=== PATIENT | female | born 1950 | race Caucasian/White ===

== ENCOUNTER 2022-03-20 14:30 | Outpatient (CLI) | payer MEDICARE, BC, SELFPAY ==
[2022-03-20 10:05] LABS: Chloride* 105 mmol/L (96-114)
[2022-03-20 10:06] LABS: Sodium* 140 mmol/L (135-149)
[2022-03-20 10:07] LABS: Potassium* 4.6 mmol/L (3.6-5.1)
[2022-03-20 10:08] LABS: Cholesterol* 223 mg/dL (90-199)
[2022-03-20 10:09] LABS: Alanine Aminotransferase* 26 U/L (4-35); Alkaline Phosphatase* 84 U/L (40-150); Aspartate Amino Transferase* 32 U/L (12-35); Bilirubin Total* 0.8 mg/dL (0.1-1.5); Blood Urea Nitrogen* 17 mg/dL (7-30); Carbon Dioxide* 30 mmol/L (20-32); Creatinine* 0.9 mg/dL (0.5-1.5); Estimated Glomerular Filt Rate 69 ml/min; Glucose* 103 mg/dL (60-115); Total Protein* 6.4 g/dL (6.0-8.3); Triglycerides* 123 mg/dL (40-149)
[2022-03-20 10:10] LABS: Calcium* 9.2 mg/dL (8.4-10.6); HDL Cholesterol* 49 mg/dL (>=50); LDL Cholesterol Calculated 149 mg/dL (<100)
[2022-03-20 10:39] LABS: TSH With Reflex to FT4* 0.048 uIU/mL (0.270-4.200)
[2022-03-20 11:19] LABS: Free T4 Free Thyroxine* 1.57 ng/dL (0.70-1.85)
== END 2022-03-20 14:31 | disposition home or self-care (01) ==
PROVIDERS: PCP Family Medicine; Visit Provider Family Medicine
DX: D64.9 Anemia, unspecified (principal); E78.5 Hyperlipidemia, unspecified; Z13.6 Encounter for screening for cardiovascular disorders; Z13.29 Encounter for screening for other suspected endocrine disorder
CPT/HCPCS: 80053; 80061; 84439; 84443

== ENCOUNTER 2022-09-14 08:39 | Outpatient (CLI) | payer MEDICARE, BC, SELFPAY ==
--- NOTE | 2022-09-14 08:45 | CRLHL7_ITS ---
For Patients: As a result of the Cures Act, medical imaging exams and procedure reports are released immediately into your electronic medical record. You may view this report before your referring provider. If you have questions, please contact your health care provider. DIGITAL DIAGNOSTIC BILATERAL MAMMOGRAM USING TOMOSYNTHESIS AND COMPUTER-AIDED DETECTION LEFT BREAST ULTRASOUND CLINICAL HISTORY: LEFT breast pain. COMPARISON: 05/12/2021, 10/15/2015, 04/18/2013. TECHNIQUE: Digital BILATERAL mammogram in four projections. Tomosynthesis and CAD utilized. Real-time ultrasound imaging of LEFT breast with imaging documentation. BREAST COMPOSITION: There are areas of scattered fibroglandular density. FINDINGS: 3D CC/MLO BILATERAL mammogram images submitted. No suspicious masses or architectural distortion. No suspicious calcifications or adenopathy. Targeted LEFT breast ultrasound performed at 6 o`clock 8 cm from the nipple. Normal breast tissue is present. No fibrocystic change or solid mass. IMPRESSION: Normal BILATERAL mammograms and normal targeted LEFT breast ultrasound. No evidence of malignancy. RECOMMENDATIONS: Annual BILATERAL screening mammography. Results and recommendations discussed with the patient. BI-RADS Category 2: Benign A lay language report of this examination will be provided to the patient. Dictated by Chon Britt MD @ 09/14/2022 10:01:24 AM jj/Dictated by: Chon Britt MD @ 09/14/2022 10:01:00 AM (Electronically Signed)
--- NOTE | 2022-09-14 09:15 | CRLHL7_ITS ---
For Patients: As a result of the Cures Act, medical imaging exams and procedure reports are released immediately into your electronic medical record. You may view this report before your referring provider. If you have questions, please contact your health care provider. PLEASE SEE DIGITAL DIAGNOSTIC BILATERAL MAMMOGRAM PERFORMED SAME DAY CRL:[email or web address] [email or web address]/Dictated by: Chon Britt MD @ 09/14/2022 10:01:00 AM (Electronically Signed)
== END 2022-09-14 08:40 | disposition home or self-care (01) ==
PROVIDERS: PCP Family Medicine; Visit Provider Obstetrics & Gynecology
DX: N64.4 Mastodynia (principal)
CPT/HCPCS: 76642; 77066; G0279

== ENCOUNTER 2023-01-22 07:42 | Outpatient (CLI) | payer MEDICARE, BC, SELFPAY ==
--- NOTE | 2023-01-22 08:17 | W.ANESCHARGE ---
Anesthesia Charges Start Date/Time Anesthesia Start Date: 01/22/23 Anesthesia Start Time: 08:21 Stop Date/Time Anesthesia Stop Date: 01/22/23 Anesthesia Stop Time: 08:55 Summary Extremes of Age - Over 70 or under 1: MDA
--- NOTE | 2023-01-22 08:57 | W.ANESCHARGE ---
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
== END 2023-01-22 07:43 | disposition home or self-care (01) ==
LOC: OP CLINIC 07:42
PROVIDERS: PCP Family Medicine; Visit Provider Internal Medicine
DX: Z12.11 Encounter for screening for malignant neoplasm of colon (principal); K57.30 Diverticulosis of large intestine without perforation or abscess without bleeding; Z86.010 Personal history of colon polyps
CPT/HCPCS: 45378; 811; 812; 99100; J2704

== ENCOUNTER 2023-01-30 11:12 | Emergency (ER) | payer MEDICARE, BC, SELFPAY ==
[2023-01-30] VITALS (13 sets, daily range): BP systolic 167–179; BP diastolic 85–94; PULSE 56–68; RESP 18; TEMP 36.3; O2SAT 92–100; BMI 32.3
--- NOTE | 2023-01-30 11:55 | CRLHL7_ITS ---
For Patients: As a result of the Century Cures Act, medical imaging exams and procedure reports are released immediately into your electronic medical record. You may view this report before your referring provider. If you have questions, please contact your health care provider. DATE: 01/30/2023 CLINICAL HISTORY: Patient with focal neurological deficits. TECHNIQUE: Standard helical CT image acquisition through the intracranial circulation following intravenous administration of contrast material with bolus tracking. 2D and 3D MIP images for post-processing were performed and interpreted on an independent workstation and 3D images were permanently archived. COMPARISON: CT same day. FINDINGS: There is no cerebral aneurysm or large vessel occlusion. The right internal carotid artery is normal. The right middle cerebral artery and its branches are normal. The right anterior cerebral artery and its branches are normal. The left internal carotid artery is normal. The left middle cerebral artery and its branches are normal. The left anterior cerebral artery and its branches are normal. The anterior communicating artery is well visualized and appears normal. The right vertebral artery and PICA are normal. The left vertebral artery and PICA are normal. The left vertebral artery is dominant. The basilar artery is patent and appears normal. The right posterior cerebral artery is normal. The left posterior cerebral artery is normal. The visualized venous structures are patent. IMPRESSION: Normal CT angiogram of the head without intracranial aneurysm or other neurovascular abnormality. Please note that all CT scans at this facility use dose modulation, iterative reconstruction, and/or weight-based dosing when appropriate to reduce radiation dose to as low as reasonably achievable. Dictated by Geoff Hardin MD @ 01/30/2023 4:46:00 PM (Electronically Signed)
--- NOTE | 2023-01-30 11:55 | CRLHL7_ITS ---
For Patients: As a result of the Cures Act, medical imaging exams and procedure reports are released immediately into your electronic medical record. You may view this report before your referring provider. If you have questions, please contact your health care provider. INDICATION: Dizziness. Left-sided numbness. Comparison none. TECHNIQUE: Noncontrast CT head. FINDINGS: Mild generalized volume loss. No acute intracranial hemorrhage, acute infarct, mass effect, or fracture. Patchy low-attenuation change within the white matter consistent with chronic deep white matter small ischemic changes. Normal calvarium and skull base. Visualized paranasal sinuses and mastoid air cells are clear. Normal orbits bilaterally. IMPRESSION: 1. No acute intracranial abnormality. 2. Mild generalized volume loss. Chronic deep white matter small vessel ischemic changes Please note that all CT scans at this facility use dose modulation, iterative reconstruction, and/or weight-based dosing when appropriate to reduce radiation dose to as low as reasonably achievable. Dictated by Valdemar Pryor MD @ 01/30/2023 12:22:11 PM (Electronically Signed)
--- NOTE | 2023-01-30 11:56 | ED.GENADULT ---
HPI - General Adult General Chief complaint: Dizziness/Vertigo Stated complaint: dizzy, left side numbness Time Seen by Provider: 01/30/23 11:30 History of Present Illness HPI narrative: This 72-year-old female comes in stating that she does not feel right with some lightheadedness and had some tingling in her tongue on the left side and also in her left toe. These symptoms were present upon awakening this morning. She does not have any speech change and does not report any unilateral weakness. She states that her vision seemed a bit blurry. She does have a mild headache. Related Data Home Medications Medication Instructions Recorded Confirmed ibuprofen 200 mg capsule 400 mg PO Q8H PRN 12/29/21 01/19/23 multivitamin 1 tab PO QDAY 12/29/21 01/19/23 cetirizine 10 mg tablet 10 mg PO QDAY 05/27/22 01/19/23 mv-mn-folic 200 mcg-vit K 15 cap PO 09/18/22 01/19/23 mcg-lutein 5 mg-zeaxanthin 1 mg capsule (PreserVision AREDS 2 Plus Multivit) Herbal life Occular PO 10/21/22 01/19/23 Previous Rx's Medication Instructions Recorded hydrochlorothiazide 25 mg tablet 25 mg PO QDAY PRN edema #30 tabs 03/24/22 levothyroxine 100 mcg tablet 100 mcg PO QDAY #90 tabs 03/24/22 omeprazole 40 mg capsule,delayed 40 mg PO QAM #90 caps 03/24/22 release fluticasone propionate 50 2 spray intranasal QDAY #10 mL 10/21/22 mcg/actuation nasal spray,suspension (Flonase Allergy Relief) peg 3350-electrolytes 236 240 ml PO ONCE #4,000 mL 12/31/22 gram-22.74 gram-6.74 gram-5.86 gram solution (Golytely) methylprednisolone 4 mg tablets in See Rx Instructions PO .COMPLEX 01/30/23 a dose pack (Medrol (Saul)) #21 ea Allergies Allergy/AdvReac Type Severity Reaction Status Date / Time codeine Allergy Mild Upset Verified 01/30/23 11:22 stomach oxycodone Allergy Mild Upset Verified 01/30/23 11:22 stomach Review of Systems Status of ROS: Reports: 10 or more systems reviewed and unremarkable except as noted in History and below Narrative: Constitutional: No fevers, no weight gain or loss. Eyes: No discharge. No vision changes. HENT: No congestion, no sore throat, no ear pain. Cardiovascular: No chest pain, no palpitations. Respiratory: No shortness of breath, no wheezes, no cough. Gastrointestinal: No abdominal pain, no vomiting, no diarrhea. Genitourinary: No dysuria, no hematuria. Musculoskeletal: Normal range of motion. Skin: No rashes, no pruritis. Neurological: No weakness, speech change. Sensory change as described above. She feels a bit lightheaded. Endo/Heme/Allergies: No bruising or bleeding. No polydipsia. Pysch: no suicidality, no anxiety, no insomnia. All other systems reviewed and are negative. [facility] Surgical History (Updated 01/14/23 @ 15:22 by Matt Lanier) History of arthroplasty of left knee (03/16/12) ?Z96.652 - Presence of left artificial knee joint (ICD-10) History of cataract surgery ?Z98.49 - Cataract extraction status, unspecified eye (ICD-10) Status post tonsillectomy and adenoidectomy ?Z90.89 - Acquired absence of other organs (ICD-10) History of tubal ligation (1976) ?Z98.51 - Tubal ligation status (ICD-10) History of laparoscopic cholecystectomy (09/05/09) ?Z90.49 - Acquired absence of other specified parts of digestive tract (ICD-10) History of dilation and curettage ?Z98.890 - Other specified postprocedural states (ICD-10) History of colonoscopy ?Z98.890 - Other specified postprocedural states (ICD-10) History of carpal tunnel surgery of left wrist (2004) ?Z98.890 - Other specified postprocedural states (ICD-10) Family History Diabetes Aneurysm Heart problem High blood pressure Uterine cancer Mother Stroke Social History (Reviewed 01/19/23 @ 10:26 by Ananya Rubio [facility], [facility]) Smoking Status: Never smoker Do you use any of these nicotine containing products: None Second hand tobacco smoke exposure: No How often do you have a drink containing alcohol: never AUDIT-C Alcohol total score: 0 Non-prescribed substance use: denies use Little interest or pleasure in doing things: not at all Feeling down, depressed, or hopeless: not at all Exam Narrative: Exam Narrative: Constitutional: Well-developed, well-nourished, no acute distress. HEENT: Normocephalic, atraumatic. Neck: Normal range of motion. Nontender. Supple. Heart: Regular. No murmurs. Normal rate. Intact distal pulses. Lungs: Clear to auscultation. No chest discomfort. No wheezes, rhonchi, or rales. Abdomen: Normal bowel sounds. Nontender. No rebound tenderness. Genitalia: Deferred. Back: No midline tenderness. Normal range of motion. Extremities: Normal range of motion. No injury. Skin: Intact. No rash. Warm. No erythema or pallor. Neurologic: No altered sensation. No weakness. Alert and oriented. No facial asymmetry. Tongue is midline. [id number] is normal. No pronator drift. Sweet Dough Mixer strength is equal bilaterally. She is able to raise each leg from the bed to my hand. She is able to ambulate normally but states that she feels off balance. Psychiatric: No suicidality. No anxiety or depression. No insomnia. Nursing notes and vitals signs are reviewed. Const: Vital Signs, click to edit/add: Vital Signs - 24 hr 01/30/23 11:22 01/30/23 12:16 01/30/23 12:17 Temperature 97.3 F L Pulse Rate 62 62 Pulse Rate [Right Pulse Oximeter] 68 Respiratory Rate 18 Blood Pressure 167/85 H Blood Pressure [Ri ght Upper Arm] 171/90 H Pulse Oximetry 99 98 98 Oxygen Delivery Me thod Room Air 01/30/23 12:19 01/30/23 12:30 01/30/23 13:14 Temperature Pulse Rate 64 61 56 L Pulse Rate [Right Pulse Oximeter] Respiratory Rate Blood Pressure 179/94 H Blood Pressure [Ri ght Upper Arm] Pulse Oximetry 99 95 97 Oxygen Delivery Me thod 01/30/23 13:15 01/30/23 13:30 01/30/23 13:45 Temperature Pulse Rate 56 L 59 L 61 Pulse Rate [Right Pulse Oximeter] Respiratory Rate Blood Pressure Blood Pressure [Ri ght Upper Arm] Pulse Oximetry 100 92 96 Oxygen Delivery Me thod Course Vital Signs Vital signs: Initial Vital Signs Temperature 97.3 F L 01/30/23 11:22 Temperature Source Temporal Artery Scan 01/30/23 11:22 Pulse Rate 68 01/30/23 11:22 Respiratory Rate 18 01/30/23 11:22 Blood Pressure 171/90 H 01/30/23 11:22 Blood Pressure Mean 117 H 01/30/23 11:22 Blood Pressure Position Sitting 01/30/23 11:22 Pulse Oximetry 99 01/30/23 11:22 Oxygen Delivery Method Room Air 01/30/23 11:22 Vital Signs Temperature 97.3 F L 01/30/23 11:22 Pulse Rate 68 01/30/23 11:22 Respiratory Rate 18 01/30/23 11:22 Blood Pressure 171/90 H 01/30/23 11:22 Pulse Oximetry 99 01/30/23 11:22 Oxygen Delivery Method Room Air 01/30/23 11:22 Temperature 97.3 F L 01/30/23 11:22 Pulse Rate 61 01/30/23 13:45 Respiratory Rate 18 01/30/23 11:22 Blood Pressure 179/94 H 01/30/23 12:19 Pulse Oximetry 96 01/30/23 13:45 Oxygen Delivery Method Room Air 01/30/23 11:22 Medical Decision Making MDM Narrative Medical decision making narrative: This patient comes in reporting tingling sensation in her tongue on the left side that she woke up with this morning. She also had some tingling sensation in her toe which has resolved. Her neurologic exam is normal. It does seem that the wrinkle lines in her forehead on the left side are less prominent than the right. She does not have any other facial asymmetry or weakness. 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 A CT scan of the head with and without contrast shows no acute findings. MRI of the head also is reassuring. Lab results additionally are in normal range. The patient has normal neurologic exam otherwise. She does feel that her vision is more blurry in the left eye but there is no visual field deficit. There are no findings on exam or with studies that indicate a central process such as a stroke. This was reassuring to the patient. She does have plans to follow-up with her eye doctor and states that she does have macular degeneration. A prescription for Medrol Dosepak is provided. Lab Data Labs: Lab Results 01/30/23 Range/Units 11:45 WBC 4.28 L (4.50-11.00) K/uL RBC 4.07 (4.00-5.20) m/uL Hgb 12.2 (12.0-16.0) gm/dL Hct 37.6 (33.0-51.0) % MCV 92 (80-100) fL MCH 30 (26-34) pg MCHC 32 (32-36) gm/dL RDW Coeff of Siri 14.8 (11.5-15.5) % Plt Count 319 (140-440) K/uL Neut % (Auto) 61.6 (42.0-72.0) % Lymph % (Auto) 24.1 (20-44) % Russell % (Auto) 9.6 (0.0-11.0) % Eos % (Auto) 4.2 (0.0-7.0) % Baso % (Auto) 0.5 (0.0-3.0) % Neut # (Auto) 2.60 (1.7-7.0) K/uL Lymph # (Auto) 1.00 (0.90-2.90) K/uL Russell # (Auto) 0.40 (0.00-0.90) K/UL Eos # (Auto) 0.20 (0.00-0.50) K/uL Baso # (Auto) 0.00 (0.00-0.30) K/uL Abs Immat Gran (auto) 0.00 (0.00-0.30) K/uL Imm/Tot Granulo (auto) 0.0 % Sodium 138 (135-149) mmol/L Potassium 4.4 (3.6-5.1) mmol/L Chloride 108 (96-114) mmol/L Carbon Dioxide 26 (20-32) mmol/L BUN 27 (7-30) mg/dL Creatinine 0.9 (0.5-1.5) mg/dL Estimated Creat Clear 38.94 Estimated GFR 68 ml/min Glucose 93 (60-115) mg/dL Calcium 8.7 (8.4-10.6) mg/dL Total Bilirubin 0.6 (0.1-1.5) mg/dL Direct Bilirubin 0.0 (0.0-0.5) mg/dL AST 32 (12-35) U/L ALT 25 (4-35) U/L Alkaline Phosphatase 75 (40-150) U/L NT-Pro-B Natriuret Pep 341 pg/mL Total Protein 6.6 (6.0-8.3) g/dL Albumin 3.8 (3.3-5.0) g/dL Imaging Data MRI - head: Radiologist's impression: 1. No acute intracranial abnormality. 2. Mild generalized volume loss. Scattered foci of T2 signal within the white matter both cerebral hemispheres consistent with chronic deep white matter small vessel ischemic changes or sequela of migraine headache 3. No acute or chronic intracranial hemorrhage CT scan - head: Radiologist's impression: CTA neck: 1. Normal bilateral carotid artery circulations from the origin to the skullbase. No high-grade stenosis. 2. Patent bilateral vertebral artery circulations from the origin to the vertebrobasilar junction. No high-grade stenosis or dissection. Other: Normal soft tissues of the visualized neck Lung apices are clear. Cervical spondylosis. Discharge Plan Discharge Clinical Impression: Paresthesias Patient Disposition: Home w/ Parent or Adult Condition: Stable Additional Instructions: Take medication as prescribed. 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 Return if worsening symptoms happen. Prescriptions: New methylprednisolone [Medrol (Saul)] 4 mg tablets,dose pack See Rx Instructions .ROUTE .COMPLEX Qty: 21 0RF Rx Instructions: orally per package directions No Action levothyroxine 100 mcg tablet 100 mcg PO QDAY Qty: 90 3RF hydrochlorothiazide 25 mg tablet 25 mg PO QDAY PRN (Reason: edema) Qty: 30 11RF omeprazole 40 mg capsule,delayed release(DR/EC) 40 mg PO QAM Qty: 90 3RF PreserVision AREDS 2 Plus MV 200 mcg-15 mcg- 5 mg-1 mg capsule PO Herbal life Occular tablet PO fluticasone propionate [Flonase Allergy Relief] 50 mcg/actuation spray,suspension 2 spray intranasal QDAY Qty: 10 4RF Rx Instructions: administer into each nostril multivitamin Tablet 1 tab PO QDAY ibuprofen 200 mg capsule 400 mg PO Q8H PRN cetirizine 10 mg tablet 10 mg PO QDAY peg 3350-electrolytes [Golytely] 236-22.74-6.74 -5.86 gram recon soln 240 ml PO ONCE Qty: 4000 0RF Rx Instructions: 4pm day prior to procedure. Drink 8oz glass every 15 minutes until 1/2 of solution is gone. 6 hours prior to your procedure time drink 8oz glass every 15 minutes until remaining solution is gone. Follow Up/Referrals: Felipe Fan MD [Primary Care Provider] - Stand Alone Forms: [employer] Info Instructions
--- NOTE | 2023-01-30 12:02 | CRLHL7_ITS ---
For Patients: As a result of the Century Cures Act, medical imaging exams and procedure reports are released immediately into your electronic medical record. You may view this report before your referring provider. If you have questions, please contact your health care provider. DATE: 01/30/2023 CLINICAL HISTORY: Patient with dizziness. TECHNIQUE: Standard helical CT image acquisition of the neck up to the skull base after bolus intravenous contrast enhancement. 2D and 3D MIP images for post-processing were performed and interpreted on an independent workstation and 3D images were permanently archived. COMPARISON: CT same day. FINDINGS: The origins of the great vessels from the aortic arch are patent. The origin of the right vertebral artery is patent. The origin of the left vertebral artery is patent. The common carotid arteries are patent. There is no stenosis at the origin of the right internal carotid artery. There is no stenosis at the origin of the left internal carotid artery. The rest of the cervical segments of the internal carotid arteries are patent up to the skull base. The left vertebral artery is dominant. The cervical segments of the vertebral arteries are patent up to the skull base. The visualized lung apices are unremarkable. The thyroid gland is unremarkable. The soft tissues of the neck are unremarkable. There are degenerative changes in the cervical spine. IMPRESSION: Normal CT angiogram of the neck. Please note that all CT scans at this facility use dose modulation, iterative reconstruction, and/or weight-based dosing when appropriate to reduce radiation dose to as low as reasonably achievable. Dictated by Geoff Hardin MD @ 01/30/2023 4:46:00 PM (Electronically Signed)
[2023-01-30 12:05] LABS: Basophils Percent Auto 0.5 % (0.0-3.0); Eosinophils Percent Auto 4.2 % (0.0-7.0); Hematocrit 37.6 % (33.0-51.0); Hemoglobin* 12.2 gm/dL (12.0-16.0); Lymphocytes Percent Auto 24.1 % (20-44); Mean Corpuscular HGB Conc 32 gm/dL (32-36); Mean Corpuscular Hemoglobin 30 pg (26-34); Mean Corpuscular Volume 92 fL (80-100); Monocytes Percent Auto 9.6 % (0.0-11.0); Neutrophils Percent Auto 61.6 % (42.0-72.0); Platelet Count* 319 K/uL (140-440); RDW Coefficient of Variation % 14.8 % (11.5-15.5); Red Blood Count 4.07 m/uL (4.00-5.20); White Blood Count* 4.28 K/uL (4.50-11.00)
--- NOTE | 2023-01-30 12:12 | CRLHL7_ITS ---
For Patients: As a result of the Century Cures Act, medical imaging exams and procedure reports are released immediately into your electronic medical record. You may view this report before your referring provider. If you have questions, please contact your health care provider. INDICATION: Dizziness. Left-sided numbness. Comparison CT from earlier today. TECHNIQUE: Multiplanar T1, T2, FLAIR and diffusion-weighted imaging. FINDINGS: Mild generalized volume loss. Scattered foci of T2/FLAIR signal hyperintense within the white-matter of both cerebral hemispheres consistent with chronic deep white matter small ischemic changes or sequela of migraine headache. No intracranial hemorrhage. No abnormal ventricular dilatation. Intracranial vascular flow voids are preserved. No mass effect. No midline shift. No restricted diffusion to suggest acute ischemia. No susceptibility artifact of remote hemorrhage. Bilateral orbits are unremarkable. Normal appearing sella. Visualized paranasal sinuses mastoid air cells are unremarkable. IMPRESSION: 1. No acute intracranial abnormality. 2. Mild generalized volume loss. Scattered foci of T2 signal within the white matter both cerebral hemispheres consistent with chronic deep white matter small vessel ischemic changes or sequela of migraine headache 3. No acute or chronic intracranial hemorrhage Dictated by Valdemar Pryor MD @ 01/30/2023 1:21:38 PM (Electronically Signed)
[2023-01-30 12:15] LABS: Slide Review Reflex No
[2023-01-30 12:25] LABS: Albumin* 3.8 g/dL (3.3-5.0); Chloride* 108 mmol/L (96-114)
[2023-01-30 12:26] LABS: Potassium* 4.4 mmol/L (3.6-5.1); Sodium* 138 mmol/L (135-149)
[2023-01-30 12:28] LABS: Bilirubin Total* 0.6 mg/dL (0.1-1.5); Carbon Dioxide* 26 mmol/L (20-32); Creatinine* 0.9 mg/dL (0.5-1.5); Est. Creatinine Clearance* 38.94; Estimated Glomerular Filt Rate 68 ml/min; Total Protein* 6.6 g/dL (6.0-8.3)
[2023-01-30 12:29] LABS: Alanine Aminotransferase* 25 U/L (4-35); Alkaline Phosphatase* 75 U/L (40-150); Aspartate Amino Transferase* 32 U/L (12-35); Blood Urea Nitrogen* 27 mg/dL (7-30); Calcium* 8.7 mg/dL (8.4-10.6); Glucose* 93 mg/dL (60-115)
[2023-01-30 13:01] LABS: NT Pro B Type NatriureticPept* 341 pg/mL
== END 2023-01-30 15:02 | disposition home or self-care (01) ==
PROVIDERS: Emergency Provider Emergency Medicine Emergency Medical Services; PCP Family Medicine
DX: R20.2 Paresthesia of skin (principal)
CPT/HCPCS: 36415; 70450; 70496; 70498; 70551; 80048; 80076; 83880; 85025; 99284; Q9967

== ENCOUNTER 2023-02-09 15:40 | Outpatient (CLI) | payer MEDICARE, BC, SELFPAY | END 2023-02-09 15:41 | disposition home or self-care (01) | LOC: NFLDREF 15:41 | PROVIDERS: PCP Family Medicine; Visit Provider Family Medicine | DX: R51.9 Headache, unspecified (principal); E03.9 Hypothyroidism, unspecified | CPT/HCPCS: 86140 ==

== ENCOUNTER 2023-04-02 07:51 | Outpatient (CLI) | payer MEDICARE, BC, SELFPAY | END 2023-04-02 07:52 | disposition home or self-care (01) | LOC: RAD 07:51 | PROVIDERS: PCP Family Medicine; Visit Provider Family Medicine | DX: I63.9 Cerebral infarction, unspecified (principal) | CPT/HCPCS: 93306 ==

== ENCOUNTER 2023-04-15 08:40 | Outpatient (CLI) | payer MEDICARE, BC, SELFPAY | END 2023-04-15 08:41 | disposition home or self-care (01) | LOC: NFLDREF 04-19 06:12 | PROVIDERS: PCP Family Medicine; Referring Provider Family Medicine; Visit Provider Family Medicine | DX: E78.5 Hyperlipidemia, unspecified (principal); E03.9 Hypothyroidism, unspecified; D64.9 Anemia, unspecified | CPT/HCPCS: 80053; 80061; 84439; 84443 ==

== ENCOUNTER 2023-07-12 08:25 | Outpatient (CLI) | payer MEDICARE, BC, SELFPAY ==
--- OUTSIDE RECORDS SUMMARY | 2023-07-12 15:19 | XMS_ITS | Referral Summary ---
Author Name Unknown Organization [facility] Address [address] [place] [id number] Care Team Providers Care Recruitment And Outreach Assistant Name Role Phone Felipe Fan MD Primary Care Provider Wander Pryor MD Unavailable [phone] Kimmy Stover MD Unavailable Wander Pryor MD Unavailable [phone] Encounters Date Type Department Care Team Description 04/28/2023 Travel 04/28/2023 Orders Only [facility] - [address] [place] [id number] Wander Pryor MD Subjective visual disturbance (Primary Dx) 04/28/2023 PRE VISIT [facility] Eye [address] [facility] [address] [place] [address] Wander Pryor MD 04/28/2023 8:30 AM GRAPHICS SOFTWARE ENGINEER Office Visit [facility] - [address] [place] [id number] Kimmy Stover MD Lee, Michael S, MD Internuclear ophthalmoplegia of right eye (Primary Dx); Subjective visual disturbance from Last 3 Months Allergies Active Allergy Reactions Criticality Noted Date Comments Codeine Nausea 02/28/2007 Medications Medication Sig Dispensed Refills Start Date End Date Status fluticasone (FLONASE) 50 MCG/ACT nasal spray 0 04/02/2023 Active hydrochlorothiazide (HYDRODIURIL) 25 MG tablet 0 04/14/2023 Active levothyroxine (SYNTHROID/LEVOTHROID) 100 MCG tablet 0 03/14/2023 Active omeprazole (PRILOSEC) [address] capsule 0 03/22/2023 Active Active Problems Problem Noted Date Diagnosed Date Fibromyalgia 04/28/2023 Osteoarthritis 04/28/2023 Hypothyroidism 04/28/2023 Social History Tobacco Use Types Packs/Day Years Used Date Smoking Tobacco: Never Smokeless Tobacco: Never PHQ-2 Answer Date Recorded PHQ-2 Score 0 04/28/2023 Adolescent Education Answer Date Record ed Getting School Help Needed Not on file 03/05 Sex and Gender Information Value Date Recorded Sex Assigned at Not on file Gender Identity Not on file Sexual Orientation Not on file Plan of Treatment Not on file Procedures Procedure Name Priority Date/Time Associated Diagnosis Comments SENSORIMOTOR Routine 04/28/2023 2:39 PM GRAPHICS SOFTWARE ENGINEER Internuclear ophthalmoplegia of right eye from Last 3 Months Results * Sensorimotor (04/28/2023 2:39 PM GRAPHICS SOFTWARE ENGINEER) Narrative Wander Pryor MD - 04/28/2023 2:39 PM GRAPHICS SOFTWARE ENGINEER Right hyperphoria, small exophoria. Wander Pryor MD OPHTHALMOLOGY from Last 3 Months Care Teams Recruitment And Outreach Assistant Relationship Specialty Start Date End Date Felipe Fan MD [facility] [address] [place] [address] PCP - General Family Medicine 03/01/23 Wander Pryor MD [address] [place] [id number] Ophthalmology 03/01/23 Kimmy Stover MD [facility] NEUROLOGICAL [facility] [address] [place] [address] Referring Physician Neurology 03/01/23 Wander Pryor MD [address] [place] [address] Assigned Surgical Provider 05/08/23
--- OUTSIDE RECORDS SUMMARY | 2023-07-12 15:19 | XMS_ITS | Clinical Summary ---
Author Name Unknown Organization [place] Address [address] [place] [address] Care Team Providers Care Industrial Engineering Analyst Name Role Phone Felipe Fan MD Primary Care Provider Wander Pryor MD Unavailable [phone] Kimmy Stover MD Unavailable Wander Pryor MD Unavailable [phone] Allergies Active Allergy Reactions Criticality Noted Date [...] Date Fibromyalgia 04/28/2023 Osteoarthritis 04/28/2023 Hypothyroidism 04/28/2023 Encounters Date Type Department Care Team Description 04/28/2023 8:30 AM NETWORK COORDINATOR Office Visit [facility] - [address] [address] Kimmy Stover MD Lee, Michael S, MD Internuclear ophthalmoplegia of right eye (Primary Dx); Subjective visual disturbance 04/28/2023 Travel 04/28/2023 Orders Only [facility] - [address] [address] Wander Pryor MD Subjective visual disturbance (Primary Dx) 04/28/2023 PRE VISIT [facility] Eye [address] [facility] [address] [place] [address] Wander Pryor MD from Last 3 Months Family History Medical History Relation Comments Heart Disease Father Hypertension Father Heart Disease Mother Hypertension Mother Relation Status Comments Father Mother Social History Tobacco Use Types Packs/Day Years Used Date Smoking Tobacco: Never Smokeless Tobacco: Never PHQ-2 Answer Date Recorded PHQ-2 Score 0 04/28/2023 Adolescent Education Answer Date Record ed Getting School Help Needed Not on file 03/05 Sex and Gender Information Value Date Recorded Sex Assigned at Not on file Gender Identity Not on file Sexual Orientation Not on file Plan of Treatment Health Maintenance Due Date Last Done Comments ADVANCE CARE PLANNING 1950 ANNUAL REVIEW OF HM ORDERS 1950 CT COLONOGRAPHY 1950 DEXA 1950 FIT 1950 FLEX SIG 1950 MAMMO SCREENING 1950 TSH W/FREE T4 REFLEX 1950 sDNA (Cologuard) 1950 COLONOSCOPY 08/13/1961 COLORECTAL CANCER SCREENING 08/13/1961 HEPATITIS C SCREENING 08/13/1969 LIPID 08/13/1996 ZOSTER IMMUNIZATION (1 of 2) 08/13/2001 RSV VACCINE ( & 60+) (1 - 1-dose 60+ series) 2011 FALL RISK ASSESSMENT 08/13/2016 MEDICARE ANNUAL WELLNESS VISIT 08/13/2016 Pneumococcal Vaccine: 65+ Years (1 of 1 - PCV) 08/13/2016 COVID-19 Vaccine ( - 2022- season) 2023 03/24/2022, 04/17/2021, 09/07/2020, Additional history exists INFLUENZA VACCINE (#1) 2023 06/30/2021, 2012 PHQ-2 (once per calendar year) 2023 04/28/2023 DTAP/TDAP/TD IMMUNIZATION (3 - Td or Tdap) 04/20/2033 04/20/2023, 04/06/2013 HPV IMMUNIZATION Aged Out No longer e ligible based on patient's age to complete this topic IPV IMMUNIZATION Aged Out No longer e ligible based on patient's age to complete this topic MENINGITIS IMMUNIZATION Aged Out No l onger eligible based on patient's age to complete this topic RSV MONOCLONAL ANTIBODY Aged Out No l onger eligible based on patient's age to complete this topic Procedures Procedure Name Priority Date/Time Associated Diagnosis Comments SENSORIMOTOR Routine 04/28/2023 2:39 PM NETWORK COORDINATOR Internuclear ophthalmoplegia of right eye from Last 3 Months Results * Sensorimotor (04/28/2023 2:39 PM NETWORK COORDINATOR) Narrative Wander Pryor MD - 04/28/2023 2:39 PM NETWORK COORDINATOR Right hyperphoria, small exophoria. Wander Pryor MD OPHTHALMOLOGY from Last 3 Months Care Teams Industrial Engineering Analyst Relationship Specialty Start Date End Date Felipe Fan MD [facility] [address] [place] [address] PCP - General Family Medicine 03/01/23 Wander Pryor MD [address] [place], [place] [address] Ophthalmology 03/01/23 Kimmy Stover MD [facility] [address] [place] [address] Referring Physician Neurology 03/01/23 Wander Pryor MD [address] [place] [address] Assigned Surgical Provider 05/08/23
--- OUTSIDE RECORDS SUMMARY | 2023-07-12 15:19 | XMS_ITS | Encounter Summary ---
Author Name Unknown Organization [place] Address [address] [place] [address] Care Team Providers Care National Recruiter Name Role Phone Felipe Fan MD Primary Care Provider [phone] Wander Pryor MD Unavailable [phone] Kimmy Stover MD Unavailable [phone] Encounter Details Date Type Department Care Team (Latest Contact Info) Description 04/28/2023 Travel Social History Tobacco Use Types Packs/Day Years Used Date Smoking Tobacco: Never Smokeless Tobacco: Never PHQ-2 Answer Date Recorded PHQ-2 Score 0 04/28/2023 Adolescent Education Answer Date Record ed Getting School Help Needed Not on file 03/05 Sex and Gender Information Value Date Recorded Sex Assigned at Not on file Gender Identity Not on file Sexual Orientation Not on file documented as of this encounter Plan of Treatment Not on file documented as of this encounter Visit Diagnoses Not on filedocumented in this encounter Care Teams National Recruiter Relationship Specialty Start Date End Date Felipe Fan MD [facility] [address] [place] [address] PCP - General Family Medicine 03/01/23 Wander Pryor MD [address] [place] [address] Ophthalmology 03/01/23 Kimmy Stover MD [facility] [address] [address] Referring Physician Neurology 03/01/23 documented as of this encounter
--- OUTSIDE RECORDS SUMMARY | 2023-07-12 15:20 | XMS_ITS | Encounter Summary ---
Author Name Unknown Organization [place] Address [address] [place] [address]. [place] [address] Care Team Providers Care Director Process Improvement Name Role Phone Unavailable Primary Care Provider Unavailabl e Reason for Visit * Reason Onset Date Comments Patient Request 07/14/2022 Call back Encounter Details Date Type Department Care Team (Late st Contact Info) Description 07/14/2022 Telephone [facility] - [address] 4th [place] [address] None Patient Request (Call back) Social History Tobacco Use Types Packs/Day Years Used Date Smoking Tobacco: Never Assessed Sex and Gender Information Value Date Recorded Sex Assigned at Not on file Gender Identity Not on file Sexual Orientation Not on file documented as of this encounter Miscellaneous Notes * Telephone Encounter - Suri Baptiste - 07/14/2022 9:51 AM CST Spoke to pt at 1030 and pt interested in clinical trials for macular degeneration 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 Reviewed there has been ongoing research with topic. Reviewed may visit clinicaltrials.gov to review current studies/trials. Pt aware to reach out to regular eye provider before in rolling in a clinical trial. Pt seemed comfortable with information. Gera Stahl RN 10:40 AM 07/15/22 [facility] Phone Message May a detailed message be left on voicemail: yes Reason for Call: Other: Pt is new to [facility]. She is doing research about stem cell studies and who offers treatement with stem cells for Macular Degeneration. She has a referral from her Strainer Tender that hasn't been sent our way yet. She would like a call back from the care team to discuss possible options for treatment with a retina specialist before scheduling an Appt. (Pt also had cataract surgery on 06/18/2022 and 06/22/2022). Please call Pt to discuss. Thank you! Action Taken: Message routed to: [facility] Ophthalmology Travel Screening: Not Applicable RMASTER documented in this encounter Plan of Treatment Not on file documented as of this encounter Visit Diagnoses Not on filedocumented in this encounter
--- OUTSIDE RECORDS SUMMARY | 2023-07-12 15:20 | XMS_ITS | Encounter Summary ---
Author Name Unknown Organization [place] Address [address] [place] [address] Care Team Providers Care Head Esthetician Name Role Phone Felipe Fan MD Primary Care Provider [phone] Wander Pryor MD Unavailable [phone] Kimmy Stover MD Unavailable [phone] Encounter Details Date Type Department Care Team (Late st Contact Info) Description 03/31/2023 PRE VISIT [facility] [address] 9[address] Clin [address] [place] [phone] Wander Pryor MD [address] [place] [address] Social History Tobacco Use Types Packs/Day Years Used Date Smoking Tobacco: Never Assessed Adolescent Education Answer Date Record ed Getting School Help Needed Not on file 03/05 Sex and Gender Information Value Date Recorded Sex Assigned at Not on file Gender Identity Not on file Sexual Orientation Not on file COVID-19 Exposure Response Date Recorded In the last 10 days, have yo u been in contact with someone who was confirmed or suspected to have Coronavirus/COVID-19? Unable to assess 03/01/2023 3:02 PM CDT documented as of this encounter Miscellaneous Notes * Telephone Encounter - Alexandra Hernández - 03/02/2023 8:12 AM CDT FUTURE VISIT INFORMATION FUTURE VISIT INFORMATION: Date: 03/31/23 Time: 9:00am [place] [facility] [place] INFORMATION: Referring provider: Kimmy Stover MD Referring providers clinic: [facility]ICAL [facility] Reason for visit/diagnosis 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] Diplopia [H53.2] RECORDS REQUESTED FROM: Clinic name Comments Records Status Imaging Status [facility] Recs scanned into chart under 02/26/[address] Head done 01/30/23 MRI 01/30/23- Request sent to [facility] for images - received and saved to PACS PAC LM for patient asking where CT and MRI were done 03/09- Patient called back and stated imaging was done at [facility] documented in this encounter Plan of Treatment Not on file documented as of this encounter Visit Diagnoses Not on filedocumented in this encounter Care Teams Head Esthetician Relationship Specialty Start Date End Date Felipe Fan MD [facility] [address] [place] [address] PCP - General Family Medicine 03/01/23 Wander Pryor MD [address] [place] [address] Ophthalmology 03/01/23 Kimmy Stover MD [facility] NEUROLOGICAL [facility] [address] [place] [address] Referring Physician Neurology 03/01/23 documented as of this encounter
--- OUTSIDE RECORDS SUMMARY | 2023-07-12 15:20 | XMS_ITS | Encounter Summary ---
Author Name Unknown Organization [facility] Address [address] [place] [address] Care Team Providers Care Functional Tester Typewriters Name Role Phone Felipe Fan MD Primary Care Provider [phone] Wander Pryor MD Unavailable [phone] Kimmy Stover MD Unavailable [phone] Reason for Referral * Consultation (Routine) - Pending Review Specialty Diagnoses / Procedures Referred By Deric matt Referred To Contact Ophthalmology Diagnoses Ophthalmoplegia Diplopia Kimmy Stover MD [facility] [address] [place] [address] Referral ID Status Reason Start Date Expiration Date V isits Requested Visits Authorized [id number] Pending Review 03/01/2023 02/29/2024 1 1 Question Answer Referral Type: Optometry/Ophthalmology Reason for Referral: Other My Clinical Question Is: Neuro Opth Scheduling Instructions: [facility] will call you to coordinate your care as prescribed by your provider. If you don't hear from a apparel trimmings sales representative within 2 business days, please call . Comments Referred by: Kimmy Stover MD [facility] Neurologic [address] [place] [address] Please be aware that coverage of these services is subject to the terms and limitations of your health insurance plan. Call member services at your health plan with any benefit or coverage questions. [facility] will call you to coordinate your care as prescribed by your provider. If you don't hear from a apparel trimmings sales representative within 2 business days, please call . Encounter Details Date Type Department Care Team (Latest Contact Info) Description 03/01/2023 Transcribe Orders GENERIC EXTERNAL DATA DEPARTMENT Provider, Generic External Data Ophthalmoplegia (Primary Dx); Diplopia Social History Tobacco Use Types Packs/Day Years Used Date Smoking Tobacco: Never Assessed Sex and Gender Information Value Date Recorded Sex Assigned at Not on file Gender Identity Not on file Sexual Orientation Not on file documented as of this encounter Plan of Treatment Scheduled Referrals Name Type Priority Associated Diagnoses Orde r Schedule Adult [facility] Referral Referral Routine Ophthalmoplegia Diplopia Ordered: 03/01/2023 documented as of this encounter Visit Diagnoses Diagnosis Ophthalmoplegia- Primary Paralytic strabismus, external ophthalmoplegia Diplopia documented in this encounter Care Teams Functional Tester Typewriters Relationship Specialty Start Date End Date Felipe Fan MD [facility] [address] [place] [address] PCP - General Family Medicine 03/01/23 Wander Pryor MD [address] [place] [address] Ophthalmology 03/01/23 Kimmy Stover MD [facility] NEUROLOGICAL [facility] [address] [place] [address] Referring Physician Neurology 03/01/23 documented as of this encounter
--- OUTSIDE RECORDS SUMMARY | 2023-07-12 15:20 | XMS_ITS | Encounter Summary ---
Author Name Unknown Organization [facility] Address [address] [place] [address] Care Team Providers Care Cyber Security Architect Name Role Phone Felipe Fan MD Primary Care Provider Wander Pryor MD Unavailable [phone] Kimmy Stover MD Unavailable [phone] Encounter Details Date Type Department Care Team (Latest Contact Info) Description 03/01/2023 Travel Social History Tobacco Use Types Packs/Day [...] PM CDT documented as of this encounter Plan of Treatment Not on file documented as of this encounter Visit Diagnoses Not on filedocumented in this encounter Care Teams Cyber Security Architect Relationship Specialty Start Date End Date Felipe Fan MD [facility] [address] [place] [address] PCP - General Family Medicine 03/01/23 Wander Pryor MD [address] [place] [address] Ophthalmology 03/01/23 Kimmy Stover MD [facility] [place] [address] [place] [address] Referring Physician Neurology 03/01/23 documented as of this encounter
--- OUTSIDE RECORDS SUMMARY | 2023-07-12 15:20 | XMS_ITS | Encounter Summary ---
Author Name Unknown Organization [place] Address [address] [place] [address] Care Team Providers Care Letter Sorting Machine Operator Name Role Phone Felipe Fan MD Primary Care Provider [phone] Wander Pryor MD Unavailable [phone] Kimmy Stover MD Unavailable Reason for Visit * Reason Onset Date Comments Appointment 03/26/2023 Encounter Details Date Type Department Care Team ([facility] st Contact Info) Description 03/26/2023 Telephone [facility] - [address] [place] [address] Wander Pryor MD [address] [place] [address] Appointment Social History Tobacco Use Types Packs/Day Years [...] encounter Miscellaneous Notes * Telephone Encounter - Serenity Ruelas - 03/26/2023 1:10 PM CDT Spoke with patient confirming appointment on 03/31/23. Patient requested to reschedule for a later date. Rescheduled patient or next available and sent new reminder letter to confirmed address.-Per Patient documented in this encounter Plan of Treatment Not on file documented as of this encounter Visit Diagnoses Not on filedocumented in this encounter Care Teams Letter Sorting Machine Operator Relationship Specialty Start Date End Date Felipe Fan MD [address] [address] PCP - General Family Medicine 03/01/23 Wander Pryor MD [address] [place] [address] Ophthalmology 03/01/23 Kimmy Stover MD [facility]UR[facility] [address] [place] [address] Referring Physician Neurology 03/01/23 documented as of this encounter
--- OUTSIDE RECORDS SUMMARY | 2023-07-12 15:20 | XMS_ITS | Clinical Summary ---
Author Name Unknown Organization [facility] Address [place], [place] [address] Care Team Providers Care Construction Equipment Mechanic Helper Name Role Phone Felipe Fan MD Primary Care Provider [phone] Allergies Active Allergy Reactions Criticality Noted Date Comments Codeine Nausea Only 02/28/2007 Medications Medication Sig Dispensed Refills Start Date End Date Status (u) HYDROCHLOROTHIAZIDE 25 MG TABS once a day ? 0 09/22/2004 Active MULTIVITAMIN ORAL TAB once a day ? 0 09/22/2004 Active ADVIL 200 MG ORAL TAB as needed ? 0 09/22/2004 Active ZITHROMAX 250 MG TAB take 2 tablets (500 mg) by oral route once daily for 1 day then 1 tablet (250 mg) by oral route once daily for 4 days 6 0 09/19/2007 Active LEVOTHYROXINE 88 MCG TAB take 1 tablet (88 mcg) by oral route once daily 30 0 04/30/2008 Active OMEPRAZOLE 20 MG CAP, DELAYED RELEASE take 1 pill 1 hour before breakfast and 1 hour before evening meal 60 11 09/03/2008 Active Encounters Date Type Department Care Team Description 05/18/2023 Telephone [facility] Angelic Jean Baptiste [address] [place] [address] YANNA Delgado [phone] Law James MD Results (Zio) 04/16/2023 Telephone [facility] Jean Baptiste [place] [address] [phone] Law Jamse MD Referral from Last 3 Months Immunizations Name Administration Dates Next Due Tuberculin (PPD) 06/14/1979 Family History Medical History Relation Name Comments Heart Disease Brother Heart Disease Father Heart Disease Mother Relation Name Status Comments Brother Father Mother Social History Tobacco Use Types Packs/Day Years Used Date Smoking Tobacco: Never Alcohol Use Standard Drinks/Week Comments No 0 (1 standard drink = 0.6 oz pur e alcohol) Alcoholic Drinks/day: 0 Social Connections Answer Date Recorded Frequency of Communication with Friends and Fami ly Not on file 04/09/2023 Sex and Gender Information Value Date Recorded Sex Assigned at Not on file Gender Identity Not on file Sexual Orientation Not on file Obstetrics History Last Filed Vital Signs Vital Sign Reading Time Taken Comments Blood Pressure 110/80 09/19/2007 10:59 AM CDT Pulse 78 09/19/2007 10:59 AM CDT Temperature 36.8 ??C (98.3 ??F) 02/28/2007 11:39 AM C DT Respiratory Rate - - Oxygen Saturation 99% 09/19/2007 10:59 AM CDT Inhaled Oxygen Concentration - - Weight 88.5 kg (195 lb) 09/19/2007 10:59 AM CDT Height 160 cm (5' 3) 06/10/2007 9:11 AM PSYCHIATRIC NURSE PRACTITIONER Body Mass Index 34.54 06/10/2007 9:11 AM PSYCHIATRIC NURSE PRACTITIONER Plan of Treatment Health Maintenance Due Date Last Done Comments Tdap 08/13/1962 Depression screening for age 12+ 1963 BMI (ht and wt on same day) for age 18+ 08/13/1969 Hepatitis C screening for age 18-79 08/13/1969 Tetanus booster 1971 Colonoscopy through age 75 08/13/1996 Mammogram for age 45-75 08/13/1996 Zoster (shingles) series for age 50+ (1 of 2) 08/13/2001 Lipids for age 45-75 10/09/2009 10/09/2004 DEXA/DXA scan for age 65+ 08/13/2016 Medicare Wellness for age 65+ 08/13/2016 Pneumococcal series for age 65+ (1 of 1 - PCV) 08/13/2016 COVID-19 vaccine series ( - 2022- season) 2023 09/07/2020, 08/17/2020 Influenza for age 65+ 02/12/2023 Procedures Procedure Name Priority Date/Time Associated Diagnosis Comments EXTENDED HOLTER Routine 05/18/2023 Atrial fibrillation, unspecified type (HC) Cerebrovascular accident (CVA), unspecified mechanism (HC) from Last 3 Months Results * Zio XT (05/18/2023) Law James MD CARDIAC SERVICE S ORD from Last 3 Months Care Teams Construction Equipment Mechanic Helper Relationship Specialty Start Date End Date Felipe Fan MD [address] [place] [phone] PCP - General Family Practice 05/27/21
--- OUTSIDE RECORDS SUMMARY | 2023-07-12 15:20 | XMS_ITS | Encounter Summary ---
Author Name Unknown Organization [place] Address [address] [place] [address]. [place] [address] Care Team Providers Care Loaf Counter Name Role Phone Felipe Fan MD Primary Care Provider [phone] Wander Pryor MD Unavailable [phone] Kimmy Stover MD Unavailable [phone] Encounter Details Date Type Department Care Team (Late st Contact Info) Description 04/28/2023 [facility] Only [facility] [address] [place] [phone] Wander Pryor MD [address] [place] [address] Subjective visual disturbance (Primary Dx) Social History Tobacco Use Types Packs/Day Years [...] as of this encounter Visit Diagnoses Diagnosis Subjective visual disturbance- Primary Subjective visual disturbance, unspecified documented in this encounter Care Teams Loaf Counter Relationship Specialty Start Date End Date Felipe Fan MD [facility] - [address] [address] PCP - General Family Medicine 03/01/23 Wander Pryor MD [address] [place] [address] Ophthalmology 03/01/23 Kimmy Stover MD [facility]UROLOG[facility] [address] [place] [address] Referring Physician Neurology 03/01/23 documented as of this encounter
--- OUTSIDE RECORDS SUMMARY | 2023-07-12 15:20 | XMS_ITS | Encounter Summary ---
Author Name Unknown Organization [place] Address [address] [place] [address] Care Team Providers Care Business Services Tech Name Role Phone Felipe Fan MD Primary Care Provider Wander Pryor MD Unavailable [phone] Kimmy Stover MD Unavailable + [phone] Reason for Visit * Reason Comments Diplopia Evaluation Pt here for double v ision. Referred by Dr. Leach * Consultation (Routine) - Pending Review Specialty Diagnoses / Procedures Referred By Deric matt Referred To Contact Ophthalmology Diagnoses Ophthalmoplegia Diplopia Kimmy Stover MD [facility] [address] [address] Referral ID Status Reason Start Date Expiration Date V isits Requested Visits Authorized [id number] Pending Review 03/01/2023 02/29/2024 1 1 Encounter Details Date Type Department Care Team (Late st Contact Info) Description 04/28/2023 8:30 AM DIGITAL X RAY SERVICE ENGINEER Office Visit [facility] Clinic - [address] 4th [place] [address] Kimmy Stover MD [facility] [address] [address] Wander Pryor MD [address] [place] [phone] Internuclear ophthalmoplegia of right eye (Primary Dx); Subjective visual disturbance Social History Tobacco Use Types Packs/Day Years [...] on file documented as of this encounter Progress Notes * Wander Pryor MD - 04/28/2023 8:30 AM CST Images from the original note were not included. Elena Marvin is a 72 year old female with the following diagnoses: 1. Internuclear ophthalmoplegia of right eye 2. Subjective visual disturbance Patient was sent for consultation by Dr. Stover for ophthalmoplegia and diplopia HPI: January 30 patient noticed that she was having double vision and imbalance. Patient went to ER that day and they did CT Head WO, CTA head/neck, MRI Brain WO to rule out stroke. Patient was given IV steroids once while in the ER and then was sent home with 1 week taper. After she was discharged patient had a severe headache that lasted through the afternoon and all night. It resolved by morning. Denies jaw claudication, unintentional weight loss, night sweats/fevers, shoulder/girdle pain. Patient went to regular eye doctor Dr. Marvin on 02/03/23 who noted that her right eye didn't cross midline when trying to look left. Patient declines any blurry vision during this episode. The eye movementissue resolved in 3-4 weeks. Patient was referred to neurology saw Dr. Stover on 02/26/23 who seth labs for GCA and ESR/CRP came back normal. Patient was then referred to neuro-ophthalmology for further evaluation. Patient had good vision after cataract surgery each eye 06/2022. Patient also has knownhistory of macular degeneration. Independent historians: Patient Daughter Review of outside testin01/30/23 MRI Brain WO 01/30/23 CT Head WO 01/30/23 CTA head No impressions available for above imaging My interpretation performed today of outside testing: I have independently reviewed MRI Brain and CT Head performed 01/30/23. No visible structural causesfor a possible 3rd nerve palsy. Review of outside clinical notes: 02/26/23 -- Visit with Dr. Stover Past medical history: Patient Active Problem List Diagnosis Fibromyalgia Osteoarthritis Hypothyroidism Medications: Hydrochlorothiazide, low dose aspirin, levothyroxine, omeprazole Family history / social history: Patient's family history includes Heart Disease in her father and mother; Hypertension in her father and mother. Patient Never Smoker, No Alcohol intake Exam: VA 20/50 OD, ph 20/100 OS. Pupils no rAPD. Anterior segment wnl for age. Posterior segment significant for diffuse subretinal hypopigmented lesions involving the macula and temporal retina each eye, subfoveal crystaline deposit and possible macular hole OS?. Strabismus N/A. Tests ordered and interpreted today: Sensorimotor exam Discussion of management / interpretation with another provider: None Assessment/Plan: It is my impression that patient has recent incident of microvascular internuclear ophthalmoplegia OD based upon description of symptoms and resolution of abnormal eye movements and diplopia. I reviewed her MRI images personally and there is no evidence of stroke along the MLF. Patient has macular drusen and dry Age related macular degeneration consistent with her known history of Age related macular degeneration. No signs of retinal retinal heme or CNV at this time. Recommend patient follow-upwith retinal specialist. Could also consider YAG capsulotomy to posterior capsular opacity (PCO) inthe RIGHT eye. She will discuss with her machine splitter. I am always happy to see Elena back for new concerns but I did not make a follow up appointment for her today. Attending Physician Attestation: Complete documentation of historical and exam elements from today's encounter can be found in the full encounter summary report (not reduplicated in this progress note). I personally obtained the chief complaint(s) and history of present illness. I confirmed and edited as necessary the review of systems, past medical/surgical history, family history, social history, and examination findings as documented by others; and I examined the patient myself. I personallyreviewed the relevant tests, images, and reports as documented above. I formulated and edited as necessary the assessment and plan and discussed the findings and management plan with the patient and family. I personally reviewed the ophthalmic test(s) associated with this encounter, agree with the interpretation(s) as documented by the resident/fellow, and have edited the corresponding report(s) as necessary. - Wander Maxine Villa MD Fellow, Neuro-Ophthalmology TAL X RAY SERVICE ENGINEER documented in this encounter Nursing Notes * Juliet Urbano COA - 04/28/2023 8:30 AM CST Chief Complaints and History of Present Illnesses Patient presents with Diplopia Evaluation Pt here for double vision. Referred by Dr. Leach Chief Complaint(s) and History of Present Illness(es) Diplopia Evaluation Laterality: both eyes Associated symptoms: Negative for color vision changes and headaches Comments: Pt here for double vision. Referred by Dr. Leach Comments Pt states double vision has gone away. It was noticed January 30, 2023. She had a CAT scan and MRI which she says came back normal, but followed with a horrible headache for 24 hours. She was given prednisone. She states her left eye wouldn't go all the way left. Pt was told they think she had a mini stroke that was undetected. Images were side to side- did not go away when she closed one eye. NIK Camacho on 04/28/2023 at 8:47 AM TAL X RAY SERVICE ENGINEER documented in this encounter Plan of Treatment Not on file documented as of this encounter Procedures Procedure Name Priority Date/Time Associated Diagnosis Comments SENSORIMOTOR Routine 04/28/2023 2:39 PM DIGITAL X RAY SERVICE ENGINEER Internuclear ophthalmoplegia of right eye documented in this encounter Results * Sensorimotor (04/28/2023 2:39 PM DIGITAL X RAY SERVICE ENGINEER) Narrative Wander Pryor MD - 04/28/2023 2:39 PM DIGITAL X RAY SERVICE ENGINEER Right hyperphoria, small exophoria. Wander Pryor MD OPHTHALMOLOGY documented in this encounter Visit Diagnoses Diagnosis Internuclear ophthalmoplegia of right eye- Primary Internuclear ophthalmoplegia Subjective visual disturbance Subjective visual disturbance, unspecified documented in this encounter Care Teams Business Services Tech Relationship Specialty Start Date End Date Felipe Fan MD [facility] [phone] PCP - General Family Medicine 03/01/23 Wander Pryor MD [address] [place], [place] [phone] Ophthalmology 03/01/23 Kimmy Stover MD [facility] [address] [place], [place] [phone] Referring Physician Neurology 03/01/23 documented as of this encounter
--- OUTSIDE RECORDS SUMMARY | 2023-07-12 15:20 | XMS_ITS | Encounter Summary ---
Author Name Unknown Organization [place] Address [address] [place] [address]. [place] [address] Care Team Providers Care Snaker Tractor Driver Name Role Phone Felipe Fan MD Primary Care Provider [phone] Wander Pryor MD Unavailable [phone] Kimmy Stover MD Unavailable [phone] Encounter Details Date Type Department Care Team ([facility] Contact Info) Description 02/26/2023 Medical Correspondence [facility] [address] [place] [address] Outside, Provider Social History Tobacco Use Types Packs/Day Years [...] on filedocumented in this encounter Care Teams Snaker Tractor Driver Relationship Specialty Start Date End Date Felipe Fan MD [facility] [address] [place] [address] PCP - General Family Medicine 03/01/23 Wander Pryor MD [address] [place] [address] Ophthalmology 03/01/23 Kimmy Stover MD [facility] [address] [address] Referring Physician Neurology 03/01/23 documented as of this encounter
--- OUTSIDE RECORDS SUMMARY | 2023-07-12 15:20 | XMS_ITS | Encounter Summary ---
Author Name Unknown Organization [place] Address [address] [place] [address] Care Team Providers Care Car Framer Name Role Phone Felipe Fan MD Primary Care Provider Wander Pryor MD Unavailable [phone] Kimmy Stover MD Unavailable + [phone] Encounter Details Date Type Department Care Team (Latest Contact Info) Description 03/26/2023 Travel Social History Tobacco Use Types Packs/Day [...] on filedocumented in this encounter Care Teams Car Framer Relationship Specialty Start Date End Date Felipe Fan MD [facility] [address] [place] [address] PCP - General Family Medicine 03/01/23 Wander Pryor MD [address] [place], [place] [address] Ophthalmology 03/01/23 Kimmy Stover MD [facility] [address] [address] Referring Physician Neurology 03/01/23 documented as of this encounter
--- OUTSIDE RECORDS SUMMARY | 2023-07-12 15:20 | XMS_ITS | Encounter Summary ---
Author Name Unknown Organization [place] Address [address] [place] [address] Care Team Providers Care Vending Machine Collector Name Role Phone Felipe Fan MD Primary Care Provider [phone] Wander Pryor MD Unavailable [phone] Kimmy Stover MD Unavailable [phone] Encounter Details Date Type Department Care Team (Late st Contact Info) Description 04/28/2023 PRE VISIT [facility] Eye Clinic [address] 9[address] Clin [address] [place] [phone] Wander Pryor MD [address] [place] [phone] Social History Tobacco Use Types Packs/Day Years Used Date Smoking Tobacco: Never Smokeless Tobacco: Never Adolescent Education Answer Date Record ed Getting School Help Needed Not on file 03/05 Sex and Gender Information Value Date Recorded Sex Assigned at Not on file Gender Identity Not on file Sexual Orientation Not on file documented as of this encounter Miscellaneous Notes * Telephone Encounter - Alexandra Hernández - 03/29/2023 8:49 AM CDT FUTURE VISIT INFORMATION FUTURE VISIT INFORMATION: Date: 04/28/23 Time: 8:00am [place] [facility] [place]ERR[place] INFORMATION: Referring provider: Kimmy Stover MD Referring providers clinic: [facility] Reason for visit/diagnosis 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] Diplopia [H53.2] RECORDS REQUESTED FROM: Clinic name Comments Records Status Imaging Status [facility] Recs scanned into chart under 02/26/[address] Head done 01/30/23 MRI 01/30/23- Request sent to [facility] for images - received and saved to PACS PAC LM for patient asking where CT and MRI were done 03/09- Patient called back and stated imaging was done at [facility] documented in this encounter Plan of Treatment Not on file documented as of this encounter Visit Diagnoses Not on filedocumented in this encounter Care Teams Vending Machine Collector Relationship Specialty Start Date End Date Felipe Fan MD [facility] [place] [address] [place] [address] PCP - General Family Medicine 03/01/23 Wander Pryor MD [address] [place] [address] Ophthalmology 03/01/23 Kimmy Stover MD [facility] [address] [place] [address] Referring Physician Neurology 03/01/23 documented as of this encounter
== END 2023-07-12 08:26 | disposition home or self-care (01) ==
LOC: NFLDREF 15:17
PROVIDERS: PCP Family Medicine; Referring Provider Family Medicine; Visit Provider Family Medicine
DX: E03.9 Hypothyroidism, unspecified (principal); I10 Essential (primary) hypertension
CPT/HCPCS: 80048; 84443

== ENCOUNTER 2023-07-21 08:12 | Day surgery (SDC) | payer MEDICARE, BC, SELFPAY ==
[2023-07-21] VITALS (23 sets, daily range): BP systolic 110–168; BP diastolic 66–98; PULSE 53–86; RESP 10–18; TEMP 35.3–37.2; O2SAT 94–100; BMI 32.8
--- OUTSIDE RECORDS SUMMARY | 2023-07-21 08:15 | XMS_ITS | Encounter Summary ---
Author Name Unknown Organization [place] Address [address] [place] [address] Care Team Providers Care Parachute Inspector Name Role Phone Felipe Fan MD Primary Care Provider [phone] Wander Pryor MD Unavailable [phone] Kimmy Stover MD Unavailable [phone] Reason for Visit * Reason Comments Diplopia Evaluation Pt here for double v ision. Referred by Dr. Leach * Consultation (Routine) - Pending Review Specialty Diagnoses / Procedures Referred By Deric matt Referred To Contact Ophthalmology Diagnoses Ophthalmoplegia Diplopia Kimmy Stover MD [facility] [address] [address] Referral ID Status Reason Start Date Expiration Date V isits Requested Visits Authorized [id number] Pending Review 03/01/2023 02/29/2024 1 1 Encounter Details Date Type Department Care Team (Late st Contact Info) Description 04/28/2023 8:30 AM PICK PACK WORKER Office Visit [facility] - [address] 4th [place] [address] Kimmy Stover MD [facility] [address] [address] Wander Pryor MD [address] [place] [phone] Internuclear ophthalmoplegia of right eye (Primary Dx); [...] RIGHT eye. She will discuss with her systems librarian. I am always happy to see Elena [...] - Wander Maxine Villa MD Fellow, Neuro-Ophthalmology PACK WORKER documented in this encounter Nursing Notes * Juilet Urbano COA - 04/28/2023 8:30 AM CST [...] NIK Camacho on 04/28/2023 at 8:47 AM PACK WORKER documented in this encounter Plan of Treatment Not on file documented as of this encounter Procedures Procedure Name Priority Date/Time Associated Diagnosis Comments SENSORIMOTOR Routine 04/28/2023 2:39 PM PICK PACK WORKER Internuclear ophthalmoplegia of right eye documented in this encounter Results * Sensorimotor (04/28/2023 2:39 PM PICK PACK WORKER) Narrative Wander Pryor MD - 04/28/2023 2:39 PM PICK PACK WORKER Right hyperphoria, small exophoria. Wander Pryor MD OPHTHALMOLOGY documented in this encounter Visit Diagnoses Diagnosis Internuclear ophthalmoplegia of right eye- Primary Internuclear ophthalmoplegia Subjective visual disturbance Subjective visual disturbance, unspecified documented in this encounter Care Teams Parachute Inspector Relationship Specialty Start Date End Date Felipe Fan MD [facility] [place] [id number] PCP - General Family Medicine 03/01/23 Wander Pryor MD [address] [place], [place] [phone] Ophthalmology 03/01/23 Kimmy Stover MD [facility] [address] [place], [place] [phone] Referring Physician Neurology 03/01/23 documented as of this encounter
--- OUTSIDE RECORDS SUMMARY | 2023-07-21 08:15 | XMS_ITS | Encounter Summary ---
Author Name Unknown Organization [place] Address [address] [place] [address] Care Team Providers Care Oil Furnace Installer Name Role Phone Felipe Fan MD Primary Care Provider [phone] Wander Pryor MD Unavailable [phone] Kimmy Stover MD Unavailable [phone] Encounter Details Date Type Department Care Team [...] on filedocumented in this encounter Care Teams Oil Furnace Installer Relationship Specialty Start Date End Date Felipe Fan MD [facility] [address] [place] [address] PCP - General Family Medicine 03/01/23 Wander Pryor MD [address] [place] [address] Ophthalmology 03/01/23 Kimmy Stover MD [facility] [address] [address] Referring Physician Neurology 03/01/23 documented as of this encounter
--- OUTSIDE RECORDS SUMMARY | 2023-07-21 08:15 | XMS_ITS | Encounter Summary ---
Author Name Unknown Organization [place] Address [address] [place] [address]. [place] [address] Care Team Providers Care Chief Communications Officer Name Role Phone Felipe Fan MD Primary Care Provider [phone] Wander Pryor MD Unavailable [phone] Kimmy Stover MD Unavailable [phone] Encounter Details Date Type Department Care Team (Late st Contact Info) Description 04/28/2023 [facility] Only [facility] [address] [place] [phone] Wander Pryor MD [address] [place] [address] Subjective visual disturbance (Primary Dx) Social [...] unspecified documented in this encounter Care Teams Chief Communications Officer Relationship Specialty Start Date End Date Felipe Fan MD [facility] [address] [address] PCP - General Family Medicine 03/01/23 Wander Pryor MD [address] [place] [address] Ophthalmology 03/01/23 Kimmy Stover MD [facility] NEUROLOGICAL [facility] [address] [place] [address] Referring Physician Neurology 03/01/23 documented as of this encounter
--- OUTSIDE RECORDS SUMMARY | 2023-07-21 08:15 | XMS_ITS | Clinical Summary ---
Author Name Unknown Organization [place] Address [address] [place] [address] Care Team Providers Care Hide Or Skin Buffer Name Role Phone Felipe Fan MD Primary Care Provider Wander Pryor MD Unavailable [phone] Kimmy Stover MD Unavailable Wander Pryor MD Unavailable [phone] Allergies Active Allergy Reactions Criticality Noted [...] Department Care Team Description 04/28/2023 8:30 AM AIR POLLUTION INSPECTOR Office Visit [facility] Eye [facility] - [address] [address] Kimmy Stover MD Lee, Michael S, MD Internuclear ophthalmoplegia of right eye (Primary Dx); Subjective visual disturbance 04/28/2023 Travel 04/28/2023 Orders Only [facility] Eye [facility] - [address] [address] Wander Pryor MD Subjective visual disturbance (Primary Dx) 04/28/2023 PRE VISIT [facility] Eye [address] [facility] [address] [place] [address] Wander Pryor MD from Last 3 Months [...] Diagnosis Comments SENSORIMOTOR Routine 04/28/2023 2:39 PM AIR POLLUTION INSPECTOR Internuclear ophthalmoplegia of right eye from Last 3 Months Results * Sensorimotor (04/28/2023 2:39 PM AIR POLLUTION INSPECTOR) Narrative Wander Pryor MD - 04/28/2023 2:39 PM AIR POLLUTION INSPECTOR Right hyperphoria, small exophoria. Wander Pryor MD OPHTHALMOLOGY from Last 3 Months Care Teams Hide Or Skin Buffer Relationship Specialty Start Date End Date Felipe Fan MD [facility] [address] [place] [address] PCP - General Family Medicine 03/01/23 Wander Pryor MD [address] [place], [place] [address] Ophthalmology 03/01/23 Kimmy Stover MD [facility] NEUROLOGICAL [facility] [address] [place] [address] Referring Physician Neurology 03/01/23 Wander Pryor MD [address] [place] [address] Assigned Surgical Provider 05/08/23
--- OUTSIDE RECORDS SUMMARY | 2023-07-21 08:15 | XMS_ITS | Encounter Summary ---
Author Name Unknown Organization [place] Address [address] [place] [address] Care Team Providers Care Non Morse Intercept Technician Name Role Phone Felipe Fan MD Primary Care Provider Wander Pryor MD Unavailable [phone] Kimmy Stover MD Unavailable [phone] Encounter Details Date Type Department Care Team [...] on filedocumented in this encounter Care Teams Non Morse Intercept Technician Relationship Specialty Start Date End Date Felipe Fan MD [facility] [address] [place] [address] PCP - General Family Medicine 03/01/23 Wander Pryor MD [address] [place] [address] Ophthalmology 03/01/23 Kimmy Stover MD [facility]OLOG[facility] [place] [address] [place] [address] Referring Physician Neurology 03/01/23 documented as of this encounter
--- OUTSIDE RECORDS SUMMARY | 2023-07-21 08:15 | XMS_ITS | Encounter Summary ---
Author Name Unknown Organization [place] Address [address] [place] [address] Care Team Providers Care Infant Room Teacher Name Role Phone Feliep Fan MD Primary Care Provider [phone] Wander Pryor MD Unavailable [phone] Kimmy Stover MD Unavailable [phone] Encounter Details Date Type Department Care Team [...] on filedocumented in this encounter Care Teams Infant Room Teacher Relationship Specialty Start Date End Date Felipe Fan MD [facility] [address] [place] [address] PCP - General Family Medicine 03/01/23 Wander Pryor MD [address] [place], [place] [address] Ophthalmology 03/01/23 Kimmy Stover MD [facility] NEUROLOGICAL [address] [address] Referring Physician Neurology 03/01/23 documented as of this encounter
--- OUTSIDE RECORDS SUMMARY | 2023-07-21 08:15 | XMS_ITS | Encounter Summary ---
Author Name Unknown Organization [place] Address [address] [place] [address] Care Team Providers Care Measurement Department Chief Clerk Name Role Phone Felipe Fan MD Primary Care Provider [phone] Wander Pryor MD Unavailable [phone] Kimmy Stover MD Unavailable Reason for Visit * Reason Onset Date Comments Appointment 03/26/2023 Encounter Details Date Type Department Care Team ([facility] st Contact Info) Description 03/26/2023 Telephone [facility] - [address] [place] [address] Wander Pryor MD [address] [place] [address] Appointment Social History Tobacco Use Types [...] on filedocumented in this encounter Care Teams Measurement Department Chief Clerk Relationship Specialty Start Date End Date Felipe Fan MD [address] [address] PCP - General Family Medicine 03/01/23 Wander Pryor MD [address] [place] [address] Ophthalmology 03/01/23 Kimmy Stover MD [facility] NEUROLOGICAL [facility] [address] [place] [address] Referring Physician Neurology 03/01/23 documented as of this encounter
--- OUTSIDE RECORDS SUMMARY | 2023-07-21 08:15 | XMS_ITS | Referral Summary ---
Author Name Unknown Organization [facility] Address [address] [place] [address] Care Team Providers Care Compliance Representative Dealer Name Role Phone Felipe Fan MD Primary Care Provider Wander Pryor MD Unavailable [phone] Kimmy Stover MD Unavailable Wander Pryor MD Unavailable [phone] Encounters Date Type Department Care Team Description 04/28/2023 Travel 04/28/2023 Orders Only [facility] - [address] [place] [phone] Wander Pryor MD Subjective visual disturbance (Primary Dx) 04/28/2023 PRE VISIT [facility] [address] 9[facility] [address] [place] [address] Wander Pryor MD 04/28/2023 8:30 AM DIRECTOR OF CUSTOMER SERVICE Office Visit [facility] - [address] [place] [phone] Kimmy Stover MD Lee, Michael S, MD [...] Diagnosis Comments SENSORIMOTOR Routine 04/28/2023 2:39 PM DIRECTOR OF CUSTOMER SERVICE Internuclear ophthalmoplegia of right eye from Last 3 Months Results * Sensorimotor (04/28/2023 2:39 PM DIRECTOR OF CUSTOMER SERVICE) Narrative Wander Pryor MD - 04/28/2023 2:39 PM DIRECTOR OF CUSTOMER SERVICE Right hyperphoria, small exophoria. Wander Pryor MD OPHTHALMOLOGY from Last 3 Months Care Teams Compliance Representative Dealer Relationship Specialty Start Date End Date Felipe Fan MD [facility] [address] [place] [address] PCP - General Family Medicine 03/01/23 Wander Pryor MD [address] [place] [address] Ophthalmology 03/01/23 Kimmy Stover MD [facility] [address] [place] [address] Referring Physician Neurology 03/01/23 Wander Pryor MD [address] [place] [address] Assigned Surgical Provider 05/08/23
--- OUTSIDE RECORDS SUMMARY | 2023-07-21 08:15 | XMS_ITS | Encounter Summary ---
Author Name Unknown Organization [facility] Address [address] [place] [address] Care Team Providers Care Metal Base Blocker Name Role Phone Felipe Fan MD Primary Care Provider Wander Pryor MD Unavailable [phone] Kimmy Stover MD Unavailable [phone] Encounter Details Date Type Department Care Team (Late st Contact Info) Description 04/28/2023 PRE VISIT [facility] [address] 9[address] Clin [address] [place] [phone] Wander Pryor MD [address] [place] [id number] Social History Tobacco Use Types Packs/Day Years [...] VISIT INFORMATION: Date: 04/28/23 Time: 8:00am Location: [facility] [place] REFERRAL INFORMATION: Referring provider: Kimmy Stover MD Referring providers clinic: [facility] Reason for visit/diagnosis 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] Diplopia [H53.2] RECORDS REQUESTED FROM: Clinic name Comments Records Status Imaging Status [facility] Recs scanned into chart under 02/26/[address] Head done 01/30/23 MRI 01/30/23- Request sent to [facility] for images - received and saved to PACS PAC LM for patient asking where CT and MRI were done 03/09- Patient called back and stated imaging was done at [facility] documented in this encounter Plan of Treatment Not on file documented as of this encounter Visit Diagnoses Not on filedocumented in this encounter Care Teams Metal Base Blocker Relationship Specialty Start Date End Date Felipe Fan MD [facility] [address] [place] [address] PCP - General Family Medicine 03/01/23 Wander Pryor MD [address] [place] [address] Ophthalmology 03/01/23 Kimmy Stover MD [facility]UR[facility]ICAL [facility] [address] [place] [address] Referring Physician Neurology 03/01/23 documented as of this encounter
--- OUTSIDE RECORDS SUMMARY | 2023-07-21 08:15 | XMS_ITS | Encounter Summary ---
Author Name Unknown Organization [facility] Address [address] [place] [address] Care Team Providers Care Testing Lead Name Role Phone Felipe Fan MD Primary Care Provider Wander Pryor MD Unavailable [phone] Kimmy Stover MD Unavailable [phone] Encounter Details Date Type Department Care Team (Late st Contact Info) Description 03/31/2023 PRE VISIT [facility] [address] 9[address] Clin [address] [place] [phone] Wander Pryor MD [address] [place] [id number] Social History Tobacco Use Types Packs/Day Years [...] VISIT INFORMATION: Date: 03/31/23 Time: 9:00am Location: [facility] [place] REFERRAL INFORMATION: Referring provider: Kimmy Stover MD Referring providers clinic: [facility] Reason for visit/diagnosis 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] Diplopia [H53.2] RECORDS REQUESTED FROM: Clinic name Comments Records Status Imaging Status [facility] Recs scanned into chart under 02/26/[address] Head done 01/30/23 MRI 01/30/23- Request sent to [facility] for images - received and saved to PACS PAC LM for patient asking where CT and MRI were done 03/09- Patient called back and stated imaging was done at [facility] documented in this encounter Plan of Treatment Not on file documented as of this encounter Visit Diagnoses Not on filedocumented in this encounter Care Teams Testing Lead Relationship Specialty Start Date End Date Felipe Fan MD [facility] [address] [place] [address] PCP - General Family Medicine 03/01/23 Wander Pryor MD [address] [place] [address] Ophthalmology 03/01/23 Kimmy Stover MD [facility] [address] [place] [address] Referring Physician Neurology 03/01/23 documented as of this encounter
--- OUTSIDE RECORDS SUMMARY | 2023-07-21 08:16 | XMS_ITS | Encounter Summary ---
Author Name Unknown Organization [place] Address [address] [place] [address]. [place] [address] Care Team Providers Care Post Graduate Intern Name Role Phone Felipe Fan MD Primary Care Provider Wander Pryor MD Unavailable [phone] Kimmy Stover MD Unavailable [phone] Encounter Details Date Type Department Care Team ([facility] Contact Info) Description 02/26/2023 Medical Correspondence [facility] [address] [place] [phone] Outside, Provider Social History Tobacco Use [...] on filedocumented in this encounter Care Teams Post Graduate Intern Relationship Specialty Start Date End Date Felipe Fan MD [facility] [address] [place] [address] PCP - General Family Medicine 03/01/23 Wander Pryor MD [address] [place] [address] Ophthalmology 03/01/23 Kimmy Stover MD [facility] NEUR[facility]ICAL [address] [address] Referring Physician Neurology 03/01/23 documented as of this encounter
--- OUTSIDE RECORDS SUMMARY | 2023-07-21 08:16 | XMS_ITS | Clinical Summary ---
Author Name Unknown Organization [facility] Address [place], [place] [address] Care Team Providers Care Bio Medical Technician Name Role Phone Felipe Fan MD Primary Care Provider [phone] Allergies Active Allergy Reactions Criticality Noted Date [...] Type Department Care Team Description 05/18/2023 Telephone [facility] [address] [place] [address] [place] [address] Law James MD Results (Zio) from Last 3 Months Immunizations Name Administration [...] 160 cm (5' 3) 06/10/2007 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 Body Mass Index 34.54 06/10/2007 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 Plan of Treatment Health Maintenance Due Date [...] 1 - PCV) 08/13/2016 COVID-19 vaccine series (2022-24 season) 2023 09/07/2020, 08/17/2020 Influenza for age 65+ 02/12/2023 Procedures Procedure Name Priority Date/Time Associated Diagnosis Comments EXTENDED HOLTER Routine 05/18/2023 Atrial fibrillation, unspecified type (HC) Cerebrovascular accident (CVA), unspecified mechanism (HC) from Last 3 Months Results * Zio XT (05/18/2023) Law James MD CARDIAC SERVICE S ORD from Last 3 Months Care Teams Bio Medical Technician Relationship Specialty Start Date End Date Felipe Fan MD [address] [place] [address] PCP - General Family Practice 05/27/21
--- OUTSIDE RECORDS SUMMARY | 2023-07-21 08:16 | XMS_ITS | Encounter Summary ---
Author Name Unknown Organization [facility] Address [address] [place] [address] Care Team Providers Care Spray I Painter Name Role Phone Felipe Fan MD Primary Care Provider [phone] Wander Pryor MD Unavailable [phone] Kimmy Stover MD Unavailable [phone] Reason for Referral * Consultation (Routine) - Pending Review Specialty Diagnoses / Procedures Referred By Deric matt Referred To Contact Ophthalmology Diagnoses Ophthalmoplegia Diplopia Kimmy Stover MD [facility] [address] [place] [address] Referral ID Status Reason Start Date Expiration Date V isits Requested Visits Authorized [id number] Pending Review 03/01/2023 02/29/2024 1 1 Question Answer Referral Type: Optometry/Ophthalmology Reason for Referral: Other My Clinical Question Is: Neuro Opth Scheduling Instructions: [facility] will call you to coordinate your care as prescribed by your provider. If you don't hear from a outside medical sales representative within 2 business days, please call . Comments Referred by: Kimmy Stover MD [facility] [address] [place] [address] Please be aware that coverage of these services is subject to the terms and limitations of your health insurance plan. Call member services at your health plan with any benefit or coverage questions. [facility] will call you to coordinate your care as prescribed by your provider. If you don't hear from a outside medical sales representative within 2 business days, please [...] Associated Diagnoses Orde r Schedule Adult Eye Costume Draper Referral Referral Routine Ophthalmoplegia Diplopia Ordered: 03/01/2023 documented as of this encounter Visit Diagnoses Diagnosis Ophthalmoplegia- Primary Paralytic strabismus, external ophthalmoplegia Diplopia documented in this encounter Care Teams Spray I Painter Relationship Specialty Start Date End Date Felipe Fan MD [facility] [address] [place] [address] PCP - General Family Medicine 03/01/23 Wander Pryor MD [address] [place] [address] Ophthalmology 03/01/23 Kimmy Stover MD [facility] NEUROLOGICAL [facility] [address] [place] [address] Referring Physician Neurology 03/01/23 documented as of this encounter
[2023-07-21] MEDS: ACETAMINOPHEN 500 MG TABLET 1000 MG PO ×3 (09:05→20:37)
--- NOTE | 2023-07-21 09:18 | CRLHL7_ITS ---
For Patients: As a result of the Cures Act, medical imaging exams and procedure reports are released immediately into your electronic medical record. You may view this report before your referring provider. If you have questions, please contact your health care provider. Indication: Postop TKA Technique: Two views right knee Findings/Impression: Hardware from a right total knee arthroplasty is in satisfactory position. Bone alignment is normal. No sign of acute fracture. Postop changes are within normal limits. Dictated by Chon Britt MD @ 07/22/2023 6:36:07 AM (Electronically Signed)
[2023-07-21] MEDS: fentaNYL 100 MCG/2 ML inj IVP (09:30)
[2023-07-21] MEDS: MIDAZOLAM HCL 1 MG/ML inj IVP (10:05)
[2023-07-21] MEDS: LACTATED RINGERS 1000 ML 1,000 ML 100 ML IV (10:09)
--- NOTE | 2023-07-21 10:09 | SUR.PREOP ---
TIME?OUT:?1005 PT/RN/MDA?VERIFICATION?OF?SURGICAL?SITE,?PROCEDURE,?AND?CONSENT OBTAINED?PRIOR?TO?INVASIVE?PROCEDURE.
[2023-07-21] MEDS: CEFAZOLIN 2 GM in 0.9 % SODIUM CHLORIDE Mini-bag 100 ML IVPB ×3 (10:34→23:49)
[2023-07-21] MEDS: TRANEXAMIC ACID 100 MG/ML INJ 1000 MG IV (10:34)
--- NOTE | 2023-07-21 11:24 | W.PM.NB ---
Nerve Block Nerve Block Time Seen by Provider: 10:00 Date Seen: 07/21/23 Type of block requested by surgeon for post-operative analgesia: adductor canal Side: right Time out performed: Yes Verification of patient name: Yes Verification of date of : Yes Site marking: site marked Name of person performing procedure: sasha Continuous monitoring Was continuous monitoring of O2 sat, B/P, manager proposal, recorded every 15 minutes?: Yes Procedure Checklist: sterile prep and needles Ultrasound guided. Images saved: Yes Medications given in 5ml increments after negative aspiration: Ropivicaine %: 0.5 mL: 20 Needle gauge: 20 Decadron (mg): 10 Precedex (mcg): 25 Patient tolerated procedure well: Yes Block Charges Block Charge (with Pro Fee): Femoral Nerve Use of Ultrasound Machine for Block: Yes- US Guidance/pain block
--- NOTE | 2023-07-21 11:27 | W.PM.NB ---
Nerve Block Nerve Block Time Seen by Provider: 10:00 Date Seen: 07/21/23 Type of block requested by surgeon for post-operative analgesia: geniculars Side: right Time out performed: Yes Verification of patient name: Yes Verification of date of : Yes Site marking: site marked Name of person performing procedure: sasha Continuous monitoring Was continuous monitoring of O2 sat, B/P, monitoring and evaluation advisor, recorded every 15 minutes?: Yes Procedure Checklist: sterile prep and needles Ultrasound guided. Images saved: Yes Medications given in 5ml increments after negative aspiration: Ropivicaine %: 0.5 mL: 12 Needle gauge: 25 Patient tolerated procedure well: Yes Block Charges Block Charge (with Pro Fee): Genicular Nerve Block Use of Ultrasound Machine for Block: Yes- US Guidance/pain block
--- NOTE | 2023-07-21 11:49 | W.ANESCHARGE ---
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
--- NOTE | 2023-07-21 11:52 | P.ORPRC_ITS ---
Procedure Note Date of procedure: 07/21/23 Procedure: PREOPERATIVE DIAGNOSIS: 1. Right knee osteoarthritis, primary, severe POSTOPERATIVE DIAGNOSIS: 1. Right knee osteoarthritis, primary, severe PROCEDURE: 1. Right total knee arthroplasty - subvastus approach SURGEON: Tomy Fishman MD. DIVISION CHIEF: Dex [place] - Of note, a skilled housekeeper and laundry assistant was critical for this case to aid in patient positioning, tissue retraction, limb manipulation/positioning, and closure. ANESTHESIA: General endotracheal anesthetic IMPLANTS: DePuy J&J all cemented TKA - Attune PS femur size 3 regular, size 3 tibia, 6 mm poly spacer, 32 mm patella TOURNIQUET: 80 minutes at 300 torr EBL: 50 ml COMPLICATIONS: None evident INDICATIONS: The patient is a pleasant 72-year-old female who has experienced severe right knee pain and difficulty bearing weight. Workup included x-rays which revealed severe osteoarthrosis in the knee. Given the deformity, the dysfunction, and the pain, as well as the failure of nonoperative management, recommendation was made for surgery. FINDINGS: Full-thickness chondral loss diffusely throughout all 3 compartments with significant meniscus pathology. Moderate effusion upon entering the joint. DESCRIPTION OF PROCEDURE: Following a thorough discussion of risks, benefits, and alternatives consent was obtained and the right knee was marked. The patient was brought to the operating room and placed supine on the operating table. Induction of anesthesia was undertaken. 2 g IV Ancef and 1 g tranexamic acid was administered within 1 hr of incision preoperatively. Proper time-out was performed identifying proper patient, site, procedure. The operative extremity was prepped and draped in the appropriate sterile fashion using ChloraPrep after the patient was positioned supine with all bony prominences well padded. A longitudinal, anterior, midline skin incision was made starting approximately 3cm proximal to the superior pole of the patella and advanced distal to the tibial tubercle. A subvastus approach and arthrotomy was created. A medial subperiosteal sleeve was created with knife, zepeda elevator and curved osteotome. The retropatellar fatpad was resected and the synovium in the suprapatellar pouch excised to visualize the anterior femoral cortex. Femoral preparation was performed via an intramedullary guide. Step drill allowed access into the femoral canal. The distal cutting guide was placed with 5? of valgus and 10 mm cut on the distal femur. Femur was sized using a anterior referencing guide in 3? of external rotation. This found have a best fit with the sizing noted above. The 4 in 1 cutting block was then placed, and the distal femur shaped accordingly. The box cut was then created and the trial implant inserted to confirm appropriate fit. We turned our attention to the proximal tibia. Extramedullary guide was utilized for cutting with the goal of being 90 degree cut from the mechanical axis of the tibia in the varus/valgus plane utilizing tibial crest as the primary alignment. Initially a 2 mm resection was performed from the medial tibial plateau. Ultimately, balancing was achieved in both flexion and extension in both varus and valgus. The knee was able to achieve full extension as well comfortably. The patella was initially measured and found have a thickness of 19 mm. It was resected back to approximately 14 mm. It was sized to be a best fit with as noted above. This was drilled, trial placed. All trials were placed and found to have an excellent stability and balance. At this stage, trial implants were removed, the knee was thoroughly irrigated with normal saline, and the cement was mixed. After irrigation, the knee was thoroughly dried, and cement placed, with the real tibial and femoral implants placed along with the patella. Trial poly spacer was placed and confirmed to have excellent range of motion and full extension, and the real poly spacer opened and inserted. All extra cement was removed, and a 3 min Betadine soak performed. Finally, a final irrigation round with normal saline was performed. Closure performed with 0 Vicryl and #0 Stratafix for the quad tendon/retinaculum. 2-0 Vicryl for the subcutaneous and 4-0 Stratafix for subcuticular closure. Dressings were applied and the patient was awoken from anesthesia after the tourniquet deflated and transferred the PACU in stable condition. A skilled housekeeper and laundry assistant was critical for this case to aid in patient positioning, tissue retraction, bone exposure, limb manipulation/positioning, patient safety, and closure. PLAN: 1. Weight bear as tolerated operative extremity. 2. 23 hr perioperative antibiotics. 3. Ice. 4. PT/OT consults for ambulation assistance/mobility education. 5. Social work consult for discharge planning. 6. DVT prophylaxis with at SCDs, Aravind Hose, and aspirin twice daily.
--- NOTE | 2023-07-21 11:53 | W.PM.H&PU ---
History & Physical Update History & Physical Update H&P Reviewed and patient assessed: No changes noted
[2023-07-21] MEDS: HYDROmorphone 0.5 mg/0.5 ml inj IVP ×2 (15:21→16:50)
[2023-07-21] MEDS: ONDANSETRON 2 MG/ML inj 4 MG IVP (18:02)
[2023-07-21] MEDS: HYDROCODONE-ACETAMIN 5-325 MG 1 TAB PO ×2 (19:29→23:48)
[2023-07-21] MEDS: ASPIRIN 81 MG TABLET EC PO (20:37)
[2023-07-21] MEDS: SENNOSIDES 1 TAB TABLET 2 TAB PO (20:37)
--- NOTE | 2023-07-21 20:50 | PM.IMHP1 ---
Hospitalist- H&P: HPI History of Present Illness Date Seen: 07/21/23 Chief complaint: Surgery Narrative: Elena Marvin is a 72 year old female admitted to the hospital for right total knee arthroplasty. Procedure performed today by Dr. Fishman. Request consultation for management of medical problems following surgery. There were no complications. Patient reports postoperatively she is having difficulty with pain control as well as significant nausea and vomiting. She does think that she may be having nausea and vomiting due to the pain medications. She has no other concerns at this time. She reports preoperatively pain control was quite difficult for her over the last few months. Prior to that she was getting cortisone shots which were effective. Most recently they were ineffective. Review of Systems Narrative: She reports no other recent illness or injury. [facility] Medical History (Updated 07/21/23 @ 20:59 by Jonathon Corona MD) Internuclear ophthalmoplegia of both eyes ?H51.23 - Internuclear ophthalmoplegia, bilateral (ICD-10) Headache ?R51.9 - Headache, unspecified (ICD-10) Acute hemorrhoid ?K64.9 - Unspecified hemorrhoids (ICD-10) Allergic rhinitis ?J30.9 - Allergic rhinitis, unspecified (ICD-10) Seasonal allergies ?J30.2 - Other seasonal allergic rhinitis (ICD-10) Mastalgia in female ?N64.4 - Mastodynia (ICD-10) Edema, lower extremity ?R60.0 - Localized edema (ICD-10) Dupuytren's contracture of left hand ?M72.0 - Palmar fascial fibromatosis [Dupuytren] (ICD-10) Osteoarthritis of right knee ?M17.11 - Unilateral primary osteoarthritis, right knee (ICD-10) Tinnitus ?H93.19 - Tinnitus, unspecified ear (ICD-10) Superficial thrombophlebitis ?I80.9 - Phlebitis and thrombophlebitis of unspecified site (ICD-10) Positive colorectal cancer screening using DNA-based stool test ?R19.5 - Other fecal abnormalities (ICD-10) Macular degeneration ?H35.30 - Unspecified macular degeneration (ICD-10) Hypothyroidism (04/05/09) ?E03.9 - Hypothyroidism, unspecified (ICD-10) Hyperlipidemia ?E78.5 - Hyperlipidemia, unspecified (ICD-10) Gastroesophageal reflux disease ?K21.9 - Gastro-esophageal reflux disease without esophagitis (ICD-10) Fibromyalgia ?M79.7 - Fibromyalgia (ICD-10) Diverticulosis of intestine (04/05/09) ?K57.90 - Diverticulosis of intestine, part unspecified, without perforation or abscess without bleeding (ICD-10) Cyst of larynx ?J38.7 - Other diseases of larynx (ICD-10) Benign hypertension (04/05/09) ?I10 - Essential (primary) hypertension (ICD-10) Sewell's esophagus ?K22.70 - Sewell's esophagus without dysplasia (ICD-10) Anemia ?D64.9 - Anemia, unspecified (ICD-10) Surgical History (Updated 07/21/23 @ 20:59 by Jonathon Corona MD) History of arthroplasty of right knee ?Z96.651 - Presence of right artificial knee joint (ICD-10) Hx of appendectomy ?Z90.49 - Acquired absence of other specified parts of digestive tract (ICD-10) Status post right foot surgery (09/23/20) ?Z98.890 - Other specified postprocedural states (ICD-10) History of arthroplasty of left knee (03/16/12) ?Z96.652 - Presence of left artificial knee joint (ICD-10) History of cataract surgery ?Z98.49 - Cataract extraction status, unspecified eye (ICD-10) Status post tonsillectomy and adenoidectomy ?Z90.89 - Acquired absence of other organs (ICD-10) History of tubal ligation (1976) ?Z98.51 - Tubal ligation status (ICD-10) History of laparoscopic cholecystectomy (09/05/09) ?Z90.49 - Acquired absence of other specified parts of digestive tract (ICD-10) History of dilation and curettage ?Z98.890 - Other specified postprocedural states (ICD-10) History of colonoscopy ?Z98.890 - Other specified postprocedural states (ICD-10) History of carpal tunnel surgery of left wrist (2004) ?Z98.890 - Other specified postprocedural states (ICD-10) Family History Mother Uterine cancer Other Aneurysm Diabetes Heart problem High blood pressure Stroke Social History (Updated 07/21/23 @ 20:56 by Jonathon Corona MD) Narrative: She lives with her daughter and her daughter's just outside [place]. She has no sitting with steps to get into her house but then she has to go down 1 level in the house where she lives on the lower level. She is able to live on 1 level once she is in the house. She does not smoke. She does not drink alcohol. She does not use an assistive device to walk. What is your current living situation?: I presently have a place to live In the past 12 months, utilities in danger of being shut off: no In past 12 months, lack of transportation kept you from medical appts, meetings, work, or getting things needed for daily living: no In the past 12 mos, have been you worried that your food would run out before you had money to buy more?: never true In the past 12 mos, the food you bought just didn't last and you didn't have money to buy more?: never true Smoking Status: Never smoker Do you use any of these nicotine containing products: None Second hand tobacco smoke exposure: No How often do you have a drink containing alcohol: never AUDIT-C Alcohol total score: 0 Non-prescribed substance use: denies use Caffeine: Yes How often does anyone, including family, friends and others, physically hurt you: never How often does anyone, including family, friends and others, insult or talk down to you: never How often does anyone, including family, friends and others, threaten you with harm: never How often does anyone, including family, friends and others, scream or curse at you: never Little interest or pleasure in doing things: not at all Feeling down, depressed, or hopeless: not at all Meds Home Medications and Allergies Home Medications Medication Instructions Recorded Confirmed Type multivitamin 1 tab PO DAILY 12/29/21 07/21/23 History cetirizine 10 mg tablet 10 mg PO DAILY 05/27/22 07/21/23 History mv-mn-folic 200 mcg-vit K 15 1 cap PO DAILY 09/18/22 07/21/23 History mcg-lutein 5 mg-zeaxanthin 1 mg capsule (PreserVision AREDS 2 Plus Multivit) Herbal life Occular 1 tab PO DAILY 10/21/22 07/21/23 History aspirin 81 mg tablet,delayed 81 mg PO DAILY 04/23/23 07/21/23 History release hydrochlorothiazide 25 mg tablet 25 mg PO DAILY PRN edema 07/19/23 07/21/23 History levothyroxine 88 mcg tablet 88 mcg PO DAILY 07/19/23 07/21/23 History Allergies Allergy/AdvReac Type Severity Reaction Status Date / Time codeine Allergy Mild Upset Verified 07/15/23 10:02 stomach oxycodone Allergy Mild Upset Verified 07/15/23 10:02 stomach Exam Narrative: Exam Narrative: She is alert and appears in no obvious distress. Reporting moderate knee pain and moderate nausea. Eyes normal. Oropharynx normal. Neck is supple without mass or adenopathy. Respirations are clear to auscultation. Breathing is unlabored. Cardiovascular: S1, S2, regular rate and rhythm. No murmur gallop or rub. Abdomen: Bowel sounds active. Abdomen is soft without tenderness or mass. Upper extremities are normal. Lower extremities without significant edema. Intact pedal pulses. Intact strength in both feet and ankles. Const: Vital Signs, click to edit/add: Vital Signs - 24 hr 07/21/23 08:53 07/21/23 10:05 07/21/23 10:10 Temperature 97.7 F Pulse Rate 62 63 63 Pulse Rate [Left P ulse Oximeter] Respiratory Rate 16 16 16 Blood Pressure 160/87 H 153/80 H 130/86 Blood Pressure [Ri ght Arm] Pulse Oximetry 99 96 100 Oxygen Delivery Me thod Room Air Nasal Cannula Nasal Cannula Oxygen Flow Rate 3 3 07/21/23 12:21 07/21/23 12:26 07/21/23 12:31 Temperature 96.8 F L Pulse Rate 63 68 65 Pulse Rate [Left P ulse Oximeter] Respiratory Rate 10 L 12 12 Blood Pressure 115/67 110/72 118/66 Blood Pressure [Ri ght Arm] Pulse Oximetry 94 94 94 Oxygen Delivery Me thod Room Air Room Air Room Air Oxygen Flow Rate 07/21/23 12:36 07/21/23 12:41 07/21/23 12:46 Temperature Pulse Rate 61 58 L 54 L Pulse Rate [Left P ulse Oximeter] Respiratory Rate 12 12 12 Blood Pressure 124/75 129/69 133/79 Blood Pressure [Ri ght Arm] Pulse Oximetry 94 94 94 Oxygen Delivery Me thod Room Air Room Air Room Air Oxygen Flow Rate 07/21/23 12:51 07/21/23 13:00 07/21/23 13:15 Temperature 97.0 F L 96.5 F L 96.7 F L Pulse Rate 58 L 58 L Pulse Rate [Left P ulse Oximeter] 53 L Respiratory Rate 12 12 12 Blood Pressure 138/79 Blood Pressure [Ri ght Arm] 154/92 H 159/87 H Pulse Oximetry 94 94 Oxygen Delivery Me thod Room Air Room Air Room Air Oxygen Flow Rate 07/21/23 13:30 07/21/23 13:45 07/21/23 14:00 Temperature 96.2 F L 96.2 F L 95.5 F L Pulse Rate Pulse Rate [Left P ulse Oximeter] 53 L 53 L 60 Respiratory Rate 12 12 16 Blood Pressure Blood Pressure [Ri ght Arm] 168/95 H 154/93 H 156/91 H Pulse Oximetry 97 96 99 Oxygen Delivery Me thod Room Air Room Air Room Air Oxygen Flow Rate 07/21/23 14:30 07/21/23 15:00 07/21/23 15:00 Temperature 98.9 F Pulse Rate Pulse Rate [Left P ulse Oximeter] 65 66 Respiratory Rate 16 16 Blood Pressure Blood Pressure [Ri ght Arm] 161/98 H Pulse Oximetry 99 97 Oxygen Delivery Me thod Room Air Oxygen Flow Rate 07/21/23 15:00 07/21/23 16:00 07/21/23 17:12 Temperature 97.1 F L 97.6 F Pulse Rate Pulse Rate [Left P ulse Oximeter] 66 80 Respiratory Rate 16 16 Blood Pressure Blood Pressure [Ri ght Arm] 156/96 H 144/89 H 148/93 H Pulse Oximetry 97 94 Oxygen Delivery Me thod Room Air Room Air Oxygen Flow Rate 07/21/23 18:00 07/21/23 19:00 07/21/23 20:31 Temperature 97.2 F L 97.7 F 97.7 F Pulse Rate Pulse Rate [Left P ulse Oximeter] 86 85 Respiratory Rate 16 18 Blood Pressure Blood Pressure [Ri ght Arm] 150/90 H 159/90 H Pulse Oximetry 95 97 Oxygen Delivery Me thod Room Air Room Air Oxygen Flow Rate Documenting provider has reviewed patient's vital signs: yes Assessment and Plan Assessment and plan (1) Inadequate pain control: Problem comment: Currently struggling with postoperative knee pain and significant nausea presumably secondary to opioid pain medications. Status: Acute (2) History of arthroplasty of right knee: Problem comment: 07/21/2023, Dr. Fishman, no complications Status: Acute (3) Benign hypertension: Problem comment: Appears to need ongoing blood pressure management. Resume home medicines Status: Acute Plan Patient is admitted the hospital for management of knee arthroplasty and postoperative care. Continue routine pain management and therapy. Continue management of nausea. Resume home medications for hypertension. Total time spent today is 40 minutes, 30 minutes in coordination of care and discussing with patient and other providers management of postoperative pain and nausea and rehabilitation
[2023-07-21] MEDS: LORazepam 0.5 MG TABLET PO (23:48)
[2023-07-22 03:30] VITALS: BP 154/82; PULSE 85; RESP 18; TEMP 36.3; O2SAT 97
[2023-07-22] MEDS: ONDANSETRON 2 MG/ML inj 4 MG IVP (03:38)
[2023-07-22] MEDS: HYDROmorphone 0.5 mg/0.5 ml inj IVP (03:38)
[2023-07-22] MEDS: SODIUM CHLORIDE 0.9 % (FLUSH) 10 ML SYRINGE IVF ×2 (03:38→08:51)
[2023-07-22] MEDS: HYDROCODONE-ACETAMIN 5-325 MG 1 TAB PO (05:53)
[2023-07-22] MEDS: OMEPRAZOLE 20 MG CAPSULE DR 40 MG PO (06:06)
[2023-07-22] MEDS: LEVOTHYROXINE 88 MCG TABLET PO (06:06)
--- NOTE | 2023-07-22 06:14 | PC.NURSE ---
pleasant and cooperative. SBA with gb and walker, tolerates well. rating pain 7-8/10, see emar. VSS. dressing to knee CDI, cryocuff on.
[2023-07-22 06:53] LABS: Basophils Absolute Auto 0.01 K/uL (0.00-0.30); Basophils Percent Auto 0.1 % (0.0-3.0); Hematocrit 35.5 % (33.0-51.0); Immature Granulocytes Abs Auto 0.03 K/uL (0.00-0.30); Immature Granulocytes Pct Auto 0.3 %; Lymphocytes Percent Auto 12.7 % (20-44); Mean Corpuscular HGB Conc 34 gm/dL (32-36); Mean Corpuscular Hemoglobin 30 pg (26-34); Mean Corpuscular Volume 89 fL (80-100); Monocytes Percent Auto 9.3 % (0.0-11.0); Neutrophils Percent Auto 77.6 % (42.0-72.0); Platelet Count* 414 K/uL (140-440); RDW Coefficient of Variation % 13.7 % (11.5-15.5); Red Blood Count 3.97 m/uL (4.00-5.20); White Blood Count* 10.46 K/uL (4.50-11.00)
[2023-07-22 07:00] VITALS: BP 144/85; PULSE 73; RESP 18; TEMP 36.6; O2SAT 99
[2023-07-22 07:20] LABS: Potassium* 4.1 mmol/L (3.6-5.1); Sodium* 138 mmol/L (135-149)
[2023-07-22 07:23] LABS: Blood Urea Nitrogen* 16 mg/dL (7-30); Creatinine* 0.7 mg/dL (0.5-1.5); Est. Creatinine Clearance* 38.94; Estimated Glomerular Filt Rate 92 ml/min
[2023-07-22 07:25] LABS: Slide Review Reflex No
[2023-07-22] MEDS: SENNOSIDES 1 TAB TABLET 2 TAB PO (08:51)
[2023-07-22] MEDS: CETIRIZINE HCL 10 MG TABLET PO (08:51)
[2023-07-22] MEDS: ASPIRIN 81 MG TABLET EC PO (08:51)
[2023-07-22] MEDS: CEFAZOLIN 2 GM in 0.9 % SODIUM CHLORIDE Mini-bag 100 ML IVPB (08:52)
[2023-07-22] MEDS: hydroCHLOROthiazide 25 MG TABLET PO (10:19)
[2023-07-22] MEDS: OXYCODONE 5 MG TABLET PO (10:19)
[2023-07-22 11:00] VITALS: BP 148/87; PULSE 72; RESP 18; TEMP 36.9; O2SAT 99
[2023-07-22] MEDS: ACETAMINOPHEN 500 MG TABLET 1000 MG PO (12:03)
--- NOTE | 2023-07-22 13:37 | PC.NURSE ---
Discharge note: Pt A&O, VSS and afebrile today. Pt is SBA with 4ww and gait belt to bathroom. Reports right knee pain is at 8/10 throbbing & constant. She was switched over to PO oxycodone q4H PRN for pain control since the [place] kept causing nausea. Oxycodone was administered @ 1020 and pt has reported no nausea & adequate relief. She reports feeling safe to discharge home with the oxycodone. Tylenol given x1 dose at 1205 prior to discharge. Right TKA dressing C/D/I and Cryo-cuff in place. CMS intact and JEMIMA stocking on LLE. Pt refused RLE JEMIMA d/t foot pain from previous surgeries. Daughter has been present throughout the day for education. PIV removed from left wrist, catheter intact. Pt discharged at via W/C, accompanied by movie writer and daughter?
--- NOTE | 2023-07-22 14:23 | P.ORPN_ITS ---
Subjective Subjective Date Seen: 07/22/23 Principal diagnosis: Status postop day 1 right total knee arthroplasty Interval history: Patient reports doing okay. No acute events over night aside from nausea, and 1 episode of vomiting. She believes this is due to pain medication. Classically has had issues with oxycodone from her last TKA, not upset stomach, but discomfort through her epigastric region, thus they decide to try [place]. [place] seems to be making her nauseous. Pain managed with scheduled and PRN medications, ice. DVT prophylaxis: 81 mg aspirin by mouth twice daily, bilateral knee high Aravind stockings, SCDs, walking. Denies fevers, chills, aches, CP, SOB/TRIPP, or lightheadedness. Ortho Exam Narrative Exam Narrative: -Patient appears comfortable; no apparent acute distress -Alert and oriented times 3 -Operative knee mildly swollen; soft tissues supple; no ecchymosis; no erythematous streaking Warmth appropriate -Surgical dressing clean, dry, intact; no drainage -Bilateral calfs soft; no significant swelling, edema, tenderness, erythema, discoloration, warmth, or palpable cords -2+ DP/PT pulses, intact dermatomes and myotomes distally (5/5 strength) Const Vital Signs, click to edit/add: Vital Signs - 24 hr 07/21/23 14:30 07/21/23 15:00 07/21/23 15:00 Temperature 98.9 F Pulse Rate [Left Pulse Oximeter] 65 66 Respiratory Rate 16 16 Blood Pressure [Right Arm] 161/98 H Pulse Oximetry 99 97 Oxygen Delivery Method Room Air 07/21/23 15:00 07/21/23 16:00 07/21/23 17:12 Temperature 97.1 F L 97.6 F Pulse Rate [Left Pulse Oximeter] 66 80 Respiratory Rate 16 16 Blood Pressure [Right Arm] 156/96 H 144/89 H 148/93 H Pulse Oximetry 97 94 Oxygen Delivery Method Room Air Room Air 07/21/23 18:00 07/21/23 19:00 07/21/23 20:31 Temperature 97.2 F L 97.7 F 97.7 F Pulse Rate [Left Pulse Oximeter] 86 85 Respiratory Rate 16 18 Blood Pressure [Right Arm] 150/90 H 159/90 H Pulse Oximetry 95 97 Oxygen Delivery Method Room Air Room Air 07/21/23 23:00 07/21/23 23:00 07/21/23 23:00 Temperature 97.7 F Pulse Rate [Left Pulse Oximeter] 85 Respiratory Rate 18 18 Blood Pressure [Right Arm] 150/88 H Pulse Oximetry 99 99 Oxygen Delivery Method Room Air 07/22/23 03:30 07/22/23 07:00 07/22/23 07:00 Temperature 97.4 F L Pulse Rate [Left Pulse Oximeter] 85 73 Respiratory Rate 18 18 Blood Pressure [Right Arm] 154/82 H Pulse Oximetry 97 99 Oxygen Delivery Method Room Air 07/22/23 07:00 07/22/23 11:00 Temperature 97.9 F 98.5 F Pulse Rate [Left Pulse Oximeter] 73 72 Respiratory Rate 18 18 Blood Pressure [Right Arm] 144/85 H 148/87 H Pulse Oximetry 99 99 Oxygen Delivery Method Room Air Room Air Assessment and Plan Assessment and plan (1) History of arthroplasty of right knee: Problem details: 07/21/2023, Dr. Fishman, no complications Status: Acute (2) Inadequate pain control: Problem details: Currently struggling with postoperative knee pain and significant nausea presumably secondary to opioid pain medications. Status: Acute (3) Benign hypertension: Problem details: Appears to need ongoing blood pressure management. Resume home medicines Status: Acute Plan - Complete 23 hour perioperative antibiotics. - PT/OT consult for education and assistance. - Social work consult for discharge planning - Prescribed analgesics as needed - will switch to oxycodone for her next dose to see this still provided good pain relief, and no nausea. I would [facility] with her, since she will not have monitoring. - DVT prophylaxis: 81 mg aspirin by mouth twice daily, bilateral knee high Aravind Hose stockings and SCDs - Anticipation is for discharge to home with family 07/22/2023 if the patient remains medically stable, pain is controlled, and they are safe with mobilization.
== END 2023-07-22 13:05 | disposition home or self-care (01) ==
LOC: OR 08:13 → MEDSURG 08:14
PROVIDERS: PCP Family Medicine; Visit Provider Orthopaedic Surgery Sports Medicine
PROC: (CPT 27447; principal; 2023-07-21 10:00)
DX: M17.11 Unilateral primary osteoarthritis, right knee (principal); G89.18 Other acute postprocedural pain; R11.2 Nausea with vomiting, unspecified; I10 Essential (primary) hypertension
CPT/HCPCS: 27447; 01402; 36415; 64447; 64454; 73560; 76942; 82565; 84132; 84295; 84520; 85025; 97116; 97161; 97165; 97535; 99100; A9270; C1776; J0690; J1100; J1170; J2250; J2405; J2704; J2795; J3010; J7120

== ENCOUNTER 2023-08-24 10:00 | Outpatient (RCR) | payer MEDICARE, BC, SELFPAY ==
--- NOTE | 2023-07-27 07:48 | PT.OPEX ---
PT [facility] Outpatient Eval [facility] Outpatient Eval Start: 07/26/23 08:02 Freq: Status: Active Protocol: Document 07/26/23 08:02 AMS (Rec: 07/26/23 16:46 AMS [id number]) E-signed By Sonia Davis PT Physical Therapy Outpatient Evaluation Insurance Information Recert Due Date 10/19/23 Insurance Name Medicare B Medical Diagnosis S/p right total knee arthroplasty 07/21/23 Presence of right artificial knee joint Treating Diagnosis Aftercare following joint replacement Right knee pain/stiffness Difficulty walking Muscle weakness Referring MD Tomy Fishman Subjective Subjective Elena Marvin is a 72 year old female admitted to the hospital for right total knee arthroplasty. Procedure performed today by Dr. Fishman. Request consultation for management of medical problems following surgery. There were no complications. Patient reports postoperatively she is having difficulty with pain control as well as significant nausea and vomiting. She does think that she may be having nausea and vomiting due to the pain medications. She has no other concerns at this time. She reports preoperatively pain control was quite difficult for her over the last few months. Prior to that she was getting cortisone shots which were effective. Most recently they were ineffective. -Dr. Corona, 07/21/23, confirmed by pt Ronit is now 5 days s/p right total knee replacement. She states things have been going well overall, did have to reschedule her appointment initially due to not feeling up for therapy last week. Has been using Lidocaine cream and massage for pain relief along with oxycodone/OTC meds as needed. Reports the N/V has gotten better since surgery. She lives in a multi-level house with 8 stairs to enter with 2 rails (see pre-op note for complete home set up). The stairs have been going well overall; has one walker upstairs and one downstairs. She lives with her daughter, Katie, who attends todays appointment, and her son-in- law. Katie works from home so has been available - to assist as needed. Ronit will see the doctor Wednesday for follow up. Reports the compression socks are too uncomfortable to wear due to her fibromyalgia. She has been icing regularly. * Easing: Lidocaine, massage, oxycodone, OTC medications, icing * Aggravating: walking, stairs , sitting, lifting * Functional limitations: walking, stairs, bending, getting in and out of the car, squatting, getting in and out of bed * Goals: range of motion, less pain, return to walking program * Assistive devices: 2WW. She is independent with all mobility at baseline without a gait aid. States she has been furniture surfing more often in home and using FWW more often for longer distances. * PLOF/social history: She likes to travel, walk, and spend time with family. She has many grandkids and great grandkids. Pain Comments * Pain * Worst: 8/10 pain, sometimes more * Best: 10 * Current: 10/21 Date of Surgery (If applicable) 07/21/23 Current Work Status Retired Preferred Name Ronit Precautions Treatment Precautions/Contraindications Hx of left total knee replacement 2011 Internuclear ophthalmoplegia of both eyes Headache Hx of acute hemorrhoid Edema, lower extremity Osteoarthritis of right knee Tinnitus Superficial thrombophlebitis Positive colorectal cancer screening using DNA-based stool test Macular degeneration Hypothyroidism (04/05/09) Hyperlipidemia Gastroesophageal reflux disease Fibromyalgia Benign hypertension (04/05/09) Sewell's esophagus Anemia Weight Bearing Status Weight Bear as Tolerated Objective Other/Pertinent Objective Knee ROM L 0-0-116 R 0-2-85* Hip ROM Did not assess Strength: Quad set: good SLR: independent without quad lag, although lacking end range TKE Gait/balance: Ambulates with use of 2WW, mildly antalgic gait on right. Palpation/joint mobility: No tenderness to palpation over adan-incisional area or joint line. Hypertonicity of quad, hamstring, calf. No TTP over calf. Swelling/observation: Unable to visualize incision due to bandage. Mild bruising posterior thigh. No redness of calf. Superior patella: L 43 cm R 53 cm Mid patella: L 39 cm R 51 cm Inf patella: L 39 cm R 45 cm Ed's: - Functional Test Performed & Score LEFS: Not today Assessment Assessment/Impression Patient is a 72 year-old female who presents to physical therapy for evaluation 5 days s/p right total knee arthroplasty on 07/21. Upon assessment, patient demonstrates decreased knee ROM, impaired gait, impaired balance, decreased lower extremity strength, and swelling. Pain is now better controlled. All findings as expected. These impairments lead to limitations with walking, stairs, bending, getting in and out of the car, squatting, getting in and out of bed. Patient would benefit from skilled PT to address impairments stated above in order to to perform all functional and recreational activities without significant difficulty or discomfort. Primary Functional Limitations walking, stairs, bending, getting in and out of the car, squatting, getting in and out of bed Plan of Care Rehabilitation Potential Good Physical Therapy Goals In 4-6 visits: 1. Patient will improve knee ROM to > 100 degrees for improved ease of STS transfers . 2.Patient will ambulate with improved mechanics and less than 3/10 knee pain with or without AD >150' for improved household/community mobility. 3. Patient will perform x5 SLR with improved form and strength to improve supine<> sit transfer. In 15 visits: 1. Patient will improve knee ROM to >115 degrees in order to comfortably navigate stairs for household and community navigation. 2. Patient will be able to walk up to 10 minutes without use of assistive device or report of increased knee pain. 3. Patient will return to her walking program (>1 mile) with less than 2/10 pain demonstrating improved walking tolerance. Coordination/Communication With Referral Source Treatment Plan/Direct Interventions Compression Garments, Electrical Stimulation,Gait Training,Joint Mobilization, Manual Therapy,Neuromuscular Re-ed,Self-Care/Home Management,Therapeutic Activities,Therapeutic Exercises Frequency/Duration 2x/week for 4 weeks, 1x/week for 8 weeks or as needed Patient Will Be Discharged From Therapy Completion of LTG(s), Independent w/HEP, Independently Progressing Evaluation Billing Untimed Code Treatment Minutes 15 Complexity Low Certification Information Initial Certification Date 07/26/23 Ending Certification Date 10/19/23 Provider Signature Shows Agreement With POC & Medical Necessity Physician Signature & Date Requested Please Sign/Date Here Physician Comment/Change : Physician NPI Number #
== END 2023-10-14 09:19 | disposition home or self-care (01) ==
PROVIDERS: PCP Family Medicine; Visit Provider Orthopaedic Surgery Sports Medicine
DX: Z96.651 Presence of right artificial knee joint (principal); Z47.1 Aftercare following joint replacement surgery; M25.561 Pain in right knee; M25.661 Stiffness of right knee, not elsewhere classified; R26.2 Difficulty in walking, not elsewhere classified; M62.81 Muscle weakness (generalized); Z51.89 Encounter for other specified aftercare
CPT/HCPCS: 97110; 97116; 97140; 97161

== ENCOUNTER 2023-12-10 09:47 | Outpatient (CLI) | payer MEDICARE, BC, SELFPAY ==
--- OUTSIDE RECORDS SUMMARY | 2023-12-10 09:50 | XMS_ITS | Referral Summary ---
Author Organization [facility] Address [address] [place] [id number] Care Team Providers Care Cutter Out Name Role Phone Felipe Fan MD Primary Care Provider [phone] Wander Pryor MD Unavailable [phone] Kimmy Stover MD Unavailable Wander Pryor MD Unavailable [phone] Allergies Active Allergy Reactions Criticality Noted Date Comments Codeine Nausea 02/28/2007 Medications Medication Sig Dispensed Refills Start Date End Date Status fluticasone (FLONASE) 50 MCG/ACT nasal spray 04/02/2023 Active hydrochlorothiazide (HYDRODIURIL) 25 MG tablet 04/14/2023 Active levothyroxine (SYNTHROID/LEVOTHROID) 100 MCG tablet 03/14/2023 Active omeprazole (PRILOSEC) [address] capsule 03/22/2023 Active Active Problems Problem Noted Date [...] file Plan of Treatment Not on file Care Teams Cutter Out Relationship Specialty Start Date End Date Felipe Fan MD [facility] [address] [place] [address] PCP - General Family Medicine 03/01/23 Wander Pryor MD [address] [place], [place] [id number] Ophthalmology 03/01/23 Kimmy Stover MD [facility] [address] [place], [place] [id number] Referring Physician Neurology 03/01/23 Wander Pryor MD [address] [place], [place] [id number] Assigned Surgical Provider 05/08/23
--- OUTSIDE RECORDS SUMMARY | 2023-12-10 09:50 | XMS_ITS | Clinical Summary ---
Author Organization [facility] Address [address] [place] [id number] Care Team Providers Care Product Coordinator Name Role Phone Felipe Fan MD Primary Care Provider Wander Pryor MD Unavailable [phone] Kimmy Stover MD Unavailable [phone] Wander Pryor MD Unavailable [phone] Allergies Active Allergy Reactions Criticality Noted [...] Date Fibromyalgia 04/28/2023 Osteoarthritis 04/28/2023 Hypothyroidism 04/28/2023 Family History Medical History Relation Comments Heart [...] DEXA 1950 FIT 1950 FLEX SIG 1951 GLUCOSE 1951 MAMMO SCREENING 1951 TSH W/FREE T4 REFLEX 1951 sDNA (Cologuard) 1950 COLONOSCOPY 08/13/1961 COLORECTAL CANCER SCREENING 08/13/1961 HEPATITIS C SCREENING 08/13/1969 LIPID 1991 ZOSTER IMMUNIZATION (1 of 2) 08/13/2001 RSV VACCINE ( & 60+) (1 - 1-dose 60+ series) 2011 FALL RISK ASSESSMENT 08/13/2016 MEDICARE ANNUAL WELLNESS VISIT 08/13/2016 Pneumococcal Vaccine: 65+ Years (1 of 1 - PCV) 08/13/2016 COVID-19 Vaccine ( - 2022- season) 2023 03/24/2022, 04/17/2021, 09/07/2020, Additional history exists PHQ-2 (once per calendar year) 2023 04/28/2023 INFLUENZA VACCINE (Season Ended) 2024 06/30/2021, 04/06/2013 DTAP/TDAP/TD IMMUNIZATION (3 - Td or Tdap) [...] on patient's age to complete this topic Care Teams Product Coordinator Relationship Specialty Start Date End Date Felipe Fan MD [facility] [address] [place] [address] PCP - General Family Medicine 03/01/23 Wander Pryor MD [address] [place] [address] Ophthalmology 03/01/23 Kimmy Stover MD [facility] [address] [place] [address] Referring Physician Neurology 03/01/23 Wander Pryor MD [address] [place] [address] Assigned Surgical Provider 05/08/23
--- OUTSIDE RECORDS SUMMARY | 2023-12-10 09:50 | XMS_ITS | Clinical Summary ---
Author Organization [employer] [facility] Address [place], [place] [address] Care Team Providers Care Cardiology Clinical Consultant Name Role Phone Felipe Fan MD Primary Care Provider [phone] Allergies Active Allergy Reactions Criticality Noted Date [...] before evening meal 60 11 09/03/2008 Active Immunizations Name Administration Dates Next Due Tuberculin [...] 160 cm (5' 3) 06/10/2007 9:11 AM [employer]ING[employer] Body Mass Index 34.54 06/10/2007 9:11 AM [employer]ING[employer]STRUMENT [employer] Plan of Treatment Health Maintenance Due Date [...] - PCV) 08/13/2016 COVID-19 vaccine series ( season) 2023 09/07/2020, 08/17/2020 Influenza for age 65+ 02/13/2024 Procedures Procedure Name Priority Date/Time Associated Diagnosis Comments LIPID PANEL STAT 10/09/2004 9:30 AM CDT from Last 3 Months or Most Recently Relevant to Health Maintenance Results * (ABNORMAL) LIPID PANEL (10/09/2004 9:30 AM CDT) CHOLESTEROL,TOTAL 201(H) 110 - 199 mg/dL [facility] TRIGLYCERIDES 88 40 - 149 mg/dL [facility] HDL CHOLESTEROL 50 41 - 95 mg/dL [facility] CHOL/HDL RATIO 4.02 <4.51 T [facility] LDL CHOLESTEROL 133(H) 60 - 130 mg/dL [facility] 10/09/2004 9:30 AM CDT 10/09/2004 9:27 AM CDT Claude Cruz MD CHEMISTRY [facility] [place]NAL ZIP [address] [address] from Last 3 Months or Most Recently Relevant to Health Maintenance Care Teams Cardiology Clinical Consultant Relationship Specialty Start Date End Date Felipe Fan MD [address] [place] [address] PCP - General Family Practice 05/27/21
--- NOTE | 2023-12-10 10:00 | CRLHL7_ITS ---
For Patients: As a result of the Century Cures Act, medical imaging exams and procedure reports are released immediately into your electronic medical record. You may view this report before your referring provider. If you have questions, please contact your health care provider. TECHNIQUE: Multiplanar high-resolution CT examination of the temporal bones with thin slices was performed without the use of intravenous contrast. INDICATION: Bilateral hearing loss. Evaluate for cholesteatoma. COMPARISON: None. FINDINGS: RIGHT TEMPORAL BONE: External auditory canal: Unremarkable. Tympanic membrane: Unremarkable. Middle ear cavity: The ossicles appear intact without evidence of erosion. The scutum appears intact. The middle ear cavity appears clear. Inner ear structures: The cochlea, semicircular canals, vestibule and vestibular aqueduct appear unremarkable. The path of the facial nerve appears unremarkable. Internal auditory canal: The osseous internal auditory canal appears unremarkable. Mastoid air cells: The mastoid air cells appear clear. LEFT TEMPORAL BONE: External auditory canal: Unremarkable. Tympanic membrane: Unremarkable. Middle ear cavity: The ossicles appear intact without evidence of erosion. The scutum appears intact. The middle ear cavity appears clear. Inner ear structures: The cochlea, semicircular canals, vestibule and vestibular aqueduct appear unremarkable. The path of the facial nerve appears unremarkable. Internal auditory canal: The osseous internal auditory canal appears unremarkable. Mastoid air cells: The mastoid air cells appear clear. OTHER: The visualized portions of the brain, orbits and upper soft tissues of the neck are unremarkable. The visualized mandible and temporomandibular joints are intact. IMPRESSION: No CT evidence of cholesteatoma. Unremarkable noncontrast CT examination of the temporal bones. Please note that all CT scans at this facility use dose modulation, iterative reconstruction, and/or weight-based dosing when appropriate to reduce radiation dose to as low as reasonably achievable. Dictated by Rafael Gore MD @ 12/12/2023 1:35:03 PM (Electronically Signed)
== END 2023-12-10 09:48 | disposition home or self-care (01) ==
LOC: CT 09:48
PROVIDERS: PCP Family Medicine; Visit Provider Otolaryngology
DX: H91.8X3 Other specified hearing loss, bilateral (principal)
CPT/HCPCS: 70480

== ENCOUNTER 2024-05-25 08:55 | Outpatient (CLI) | payer MEDICARE, BC, SELFPAY | END 2024-05-25 08:56 | disposition home or self-care (01) | LOC: NFLDREF 13:45 | PROVIDERS: PCP Family Medicine; Referring Provider Family Medicine; Visit Provider Family Medicine | DX: E78.5 Hyperlipidemia, unspecified (principal); E03.9 Hypothyroidism, unspecified; I10 Essential (primary) hypertension | CPT/HCPCS: 80053; 80061; 84439; 84443 ==

== ENCOUNTER 2024-05-30 10:41 | Outpatient (CLI) | payer MEDICARE, BC, SELFPAY ==
--- NOTE | 2024-05-30 11:00 | CRLHL7_ITS ---
For Patients: As a result of the Century Cures Act, medical imaging exams and procedure reports are released immediately into your electronic medical record. You may view this report before your referring provider. If you have questions, please contact your health care provider. Indication: CHRONIC COUGH Technique: CT Chest 75CC ISOVUE 370 Please note that all CT scans at this facility use dose modulation, iterative reconstruction, and/or weight-based dosing when appropriate to reduce radiation dose to as low as reasonably achievable. Comparison: 03/11/2021 Findings: Small ill-defined density is present within the left lower lobe, series 3, image 97, new from the prior study. No pleural effusion or pulmonary edema. No pulmonary fibrosis. Stable perifissural nodules along the left major fissure. No pneumothorax. Stable subpleural nodule at the left upper lobe. Biapical pleural-parenchymal scarring is present. Stable subpleural density right upper lobe. Unchanged noncalcified nodule within the right lower lobe measuring 5.3 millimeters. Similar mildly prominent bilateral axillary lymph nodes. No enlarged mediastinal or hilar lymph nodes. Gallbladder absent. Adrenal glands normal. Ectasia of the descending thoracic aorta. Multilevel degenerative disc disease. Impression: Ill-defined density within the left lower lobe which is new from the prior study and could be a small focus of inflammation. No pulmonary fibrosis. Stable pulmonary nodules elsewhere. Stable mildly prominent bilateral axillary lymph nodes. Please note that all CT scans at this facility use dose modulation, iterative reconstruction, and/or weight-based dosing when appropriate to reduce radiation dose to as low as reasonably achievable. Dictated by Chon Britt MD @ 05/30/2024 3:14:34 PM (Electronically Signed)
[2024-05-30 11:30] LABS: Estimated Glomerular Filt Rate 60 ml/min
== END 2024-05-30 10:42 | disposition home or self-care (01) ==
LOC: CT 10:42
PROVIDERS: PCP Family Medicine; Visit Provider Family Medicine
DX: R05.3 Chronic cough (principal); R91.8 Other nonspecific abnormal finding of lung field
CPT/HCPCS: 36415; 71260; 82565; Q9967

== ENCOUNTER 2024-05-31 10:28 | Outpatient (CLI) | payer MEDICARE, BC, SELFPAY | END 2024-05-31 10:29 | disposition home or self-care (01) | PROVIDERS: PCP Family Medicine; Referring Provider Family Medicine; Visit Provider Family Medicine | DX: R05.3 Chronic cough (principal); Z20.818 Contact with and (suspected) exposure to other bacterial communicable diseases | CPT/HCPCS: 86615 ==

== ENCOUNTER 2024-07-24 09:25 | Outpatient (CLI) | payer MEDICARE, BC, SELFPAY | END 2024-07-24 09:26 | disposition home or self-care (01) | LOC: NFLDREF 07-28 02:54 | PROVIDERS: PCP Family Medicine; Referring Provider Family Medicine; Visit Provider Family Medicine | DX: E03.9 Hypothyroidism, unspecified (principal) | CPT/HCPCS: 84443 ==